=== PATIENT | female | born 1945 | race Caucasian/White ===

== ENCOUNTER 2022-12-29 16:43 | Outpatient (OUT) | payer MEDICARE, SELFPAY ==
--- NOTE | 2022-12-29 17:07 | XR_ITS ---
The [address] [address] Patient Name: OLGA SUNG MRN: [id number] date: 1945 Sex: F Assigned Patient Location: LAB Current Patient Location: LAB Accession/Order Number: [id number] Exam Date: 12/29/2022 17:02 Report Date: 12/29/2022 19:25 At the request of: ANTHONY TRAN Procedure: XR chest 2V EXAM: XR chest 2V HISTORY: COPD,J44.9 ; breathing getting worse. COMPARISON: PA chest/left RIBS series dated 09/30/2021 and PA and lateral views of the chest dated 04/02/2021. TECHNIQUE: PA and lateral views of the chest performed. FINDINGS: Stable mild convexity of the trachea secondary to the aortic arch. The cardiac silhouette is upper limits normal size and stable. Stable moderate atheromatous calcification at the aortic arch and a stable tortuous course of the descending thoracic aorta. There are stable coarsened interstitial markings throughout both lung morris which most likely are related to COPD. There is no new additional consolidation or infiltrate. There is no pleural effusion or pulmonary vascular congestion. There is no pneumothorax. The bony structures are osteopenic. There are stable compression fractures at several levels along the mid thoracic spine with resultant kyphosis. XR/XR chest 2V IMPRESSION: There is no acute cardiopulmonary process. Electronically authenticated by: BEATRIZ CARABALLO Date: 12/29/2022 19:25
== END 2022-12-29 16:44 | disposition home or self-care (01) ==
LOC: LAB 16:50
PROVIDERS: PCP Family Medicine; Visit Provider Family Medicine
DX: J44.9 Chronic obstructive pulmonary disease, unspecified (principal); S06.0XAA Concussion with loss of consciousness status unknown, initial encounter; G62.9 Polyneuropathy, unspecified; M19.90 Unspecified osteoarthritis, unspecified site; F41.9 Anxiety disorder, unspecified; G47.00 Insomnia, unspecified; M65.4 Radial styloid tenosynovitis [de Quervain]; K21.9 Gastro-esophageal reflux disease without esophagitis
CPT/HCPCS: 71046

== ENCOUNTER 2022-12-30 08:48 | Outpatient (OUT) | payer MEDICARE, SELFPAY ==
[2022-12-30 09:33] LABS: Basophils Absolute Auto 0.1 10^3/uL (0.0-0.1); Basophils Percent Auto 0.9 % (0.2-2.0); Eosinophils Absolute Auto 0.3 10^3/uL (0.0-0.7); Hematocrit 38.6 % (36.0-48.0); Hemoglobin 12.5 g/dL (12.0-16.0); Immature Granulocytes Abs Auto 0.02 10^3/uL (0.00-0.03); Immature Granulocytes Pct Auto 0.4 % (0.0-0.5); Lymphocytes Absolute Auto 1.3 10^3/uL (1.2-3.8); Lymphocytes Percent Auto 23.4 % (20.5-60.0); Mean Corpuscular HGB Conc 32.4 g/dL (29.9-35.2); Mean Corpuscular Hemoglobin 30.5 pg (26.7-34.0); Mean Corpuscular Volume 94.1 fL (81.0-99.0); Mean Platelet Volume 10.1 fL (9.5-13.5); Monocytes Absolute Auto 0.6 10^3/uL (0.3-0.8); Monocytes Percent Auto 11.2 % (1.7-12.0); Neutrophils Absolute Auto 3.3 10^3/uL (1.4-6.5); Neutrophils Percent Auto 58.1 % (43.0-75.0); Platelet Count 214 10^3/uL (150-450); Red Cell Distribution Width 12.8 % (11.0-15.0); White Blood Count 5.6 10^3/uL (4.0-11.0)
[2022-12-30 09:55] LABS: Anion Gap 12.8; BUN Creatinine Ratio 26.6; Carbon Dioxide 27.1 mmol/L (21.0-32.0); Chloride 103 mmol/L (98-107); Chol HDL Ratio 2.7; Cholesterol 208 mg/dL (<=200); Estimated GFR (African America >60 (>=60); Estimated GFR (Non-African Ame >60 (>=60); Glucose 86 mg/dL (74-106); HDL Cholesterol 78 mg/dL (40-60); Potassium 3.9 mmol/L (3.5-5.1); Sodium 139 mmol/L (136-145); Thyroid Stimulating Hormone 2.234 uIU/mL (0.358-3.740); Triglycerides 65 mg/dL (<=150)
== END 2022-12-30 08:49 | disposition home or self-care (01) ==
LOC: LAB 08:49
PROVIDERS: PCP Family Medicine; Visit Provider Family Medicine
DX: J44.9 Chronic obstructive pulmonary disease, unspecified (principal); G62.9 Polyneuropathy, unspecified; G47.00 Insomnia, unspecified; K21.9 Gastro-esophageal reflux disease without esophagitis; F41.9 Anxiety disorder, unspecified
CPT/HCPCS: 36415; 80048; 80061; 84436; 84443; 85025

== ENCOUNTER 2023-06-11 12:08 | Outpatient (OUT) | payer MEDICARE, SELFPAY ==
--- NOTE | 2023-06-11 12:18 | XR_ITS ---
The [address] [address] Patient Name: OLGA SUNG MRN: [id number] date: 1945 Sex: F Assigned Patient Location: [facility] Current Patient Location: [facility] Accession/Order Number: [id number] Exam Date: 06/11/2023 12:30 Report Date: 06/13/2023 05:44 At the request of: ANTHONY TRAN Procedure: XR lumbar spine 2-3V EXAMINATION: XR lumbar spine 2-3V, XR thoracic spine 3V HISTORY: strain of other specified muscles, fascia and tendons thigh ; acute thoracic and lumbar pain after picking up object COMPARISON: XR chest 12/29/2022, CT L-spine 11/30/2021 FINDINGS: BONES: Marked anterior wedging T6 and T7 vertebral bodies. Mild compression fractures of T9 and T10. Grade 1 anterior listhesis of L4 on 5. Moderate degenerative facet arthropathy L4-L5, L5-S1. DISC SPACES: Multilevel mild narrowing of thoracic spine. Mild-moderate narrowing throughout lumbar spine except L5-S1 where there is marked narrowing. PARASPINOUS: Atherosclerotic disease of aorta without appreciable aneurysm. OTHER: Negative. XR/XR lumbar spine 2-3V IMPRESSION: 1. Multilevel compression fractures and degenerative disc disease of thoracic and lumbar spine; grossly stable compared to prior studies. 2. No appreciable acute abnormality. Electronically authenticated by: STEPHIE GUADALUPE Date: 06/13/2023 05:44
--- NOTE | 2023-06-11 12:19 | XR_ITS ---
The [address] [address] Patient Name: OLGA SUNG MRN: [id number] date: 1945 Sex: F Assigned Patient Location: [facility] Current Patient Location: [facility] Accession/Order Number: [id number] Exam Date: 06/11/2023 12:30 Report Date: 06/13/2023 05:44 At the request of: ANTHONY TRAN Procedure: XR thoracic spine 3V EXAMINATION: XR lumbar spine 2-3V, XR thoracic spine 3V HISTORY: strain of other specified muscles, fascia and tendons thigh ; acute thoracic and lumbar pain after picking up object COMPARISON: XR chest 12/29/2022, CT L-spine 11/30/2021 FINDINGS: BONES: Marked anterior wedging T6 and T7 vertebral bodies. Mild compression fractures of T9 and T10. Grade 1 anterior listhesis of L4 on 5. Moderate degenerative facet arthropathy L4-L5, L5-S1. DISC SPACES: Multilevel mild narrowing of thoracic spine. Mild-moderate narrowing throughout lumbar spine except L5-S1 where there is marked narrowing. PARASPINOUS: Atherosclerotic disease of aorta without appreciable aneurysm. OTHER: Negative. XR/XR thoracic spine 3V IMPRESSION: 1. Multilevel compression fractures and degenerative disc disease of thoracic and lumbar spine; grossly stable compared to prior studies. 2. No appreciable acute abnormality. Electronically authenticated by: STEPHIE GUADALUPE Date: 06/13/2023 05:44
== END 2023-06-11 12:09 | disposition home or self-care (01) ==
LOC: RAD 12:11
PROVIDERS: PCP Family Medicine; Visit Provider Family Medicine
DX: S76.819A Strain of other specified muscles, fascia and tendons at thigh level, unspecified thigh, initial encounter (principal)
CPT/HCPCS: 72072; 72100

== ENCOUNTER 2023-08-18 08:56 | Outpatient (OUT) | payer MEDICARE, SELFPAY ==
[2023-08-18 09:22] LABS: Basophils Absolute Auto 0.1 10^3/uL (0.0-0.1); Basophils Percent Auto 0.7 % (0.2-2.0); Eosinophils Absolute Auto 0.3 10^3/uL (0.0-0.7); Eosinophils Percent Auto 3.9 % (0.9-7.0); Hematocrit 38.3 % (36.0-48.0); Hemoglobin 12.1 g/dL (12.0-16.0); Immature Granulocytes Abs Auto 0.03 10^3/uL (0.00-0.03); Immature Granulocytes Pct Auto 0.4 % (0.0-0.5); Lymphocytes Absolute Auto 1.1 10^3/uL (1.2-3.8); Lymphocytes Percent Auto 16.2 % (20.5-60.0); Mean Corpuscular HGB Conc 31.6 g/dL (29.9-35.2); Mean Corpuscular Hemoglobin 29.4 pg (26.7-34.0); Mean Corpuscular Volume 93.2 fL (81.0-99.0); Mean Platelet Volume 9.7 fL (9.5-13.5); Monocytes Absolute Auto 0.7 10^3/uL (0.3-0.8); Monocytes Percent Auto 9.4 % (1.7-12.0); Neutrophils Absolute Auto 4.8 10^3/uL (1.4-6.5); Neutrophils Percent Auto 69.4 % (43.0-75.0); Platelet Count 217 10^3/uL (150-450); Red Blood Count 4.11 10^6/uL (4.20-5.40); Red Cell Distribution Width 13.2 % (11.0-15.0); White Blood Count 6.9 10^3/uL (4.0-11.0)
[2023-08-18 09:44] LABS: Alanine Aminotransferase 12 U/L (14-59); Albumin Globulin Ratio 0.8; Albumin Level 3.2 g/dL (3.4-5.0); Alkaline Phosphatase 107 U/L (46-116); Anion Gap 11.5; Aspartate Amino Transferase 15 U/L (15-37); BUN Creatinine Ratio 24.3; Bilirubin Total 0.5 mg/dL (0.2-1.0); Calcium 9.2 mg/dL (8.5-10.1); Carbon Dioxide 29.4 mmol/L (21.0-32.0); Chloride 105 mmol/L (98-107); Chol HDL Ratio 2.6; Cholesterol 215 mg/dL (<=200); Estimated GFR (African America >60 (>=60); Estimated GFR (Non-African Ame >60 (>=60); Globulin 3.8 g/dL; Glucose 89 mg/dL (74-106); HDL Cholesterol 82 mg/dL (40-60); Potassium 3.9 mmol/L (3.5-5.1); Sodium 142 mmol/L (136-145); Triglycerides 66 mg/dL (<=150); VLDL CHOLESTEROL 13.2 mg/dL
== END 2023-08-18 08:57 | disposition home or self-care (01) ==
LOC: LAB 08:59
PROVIDERS: PCP Family Medicine; Visit Provider Family Medicine
DX: G62.9 Polyneuropathy, unspecified (principal); J44.9 Chronic obstructive pulmonary disease, unspecified; G47.00 Insomnia, unspecified; K21.9 Gastro-esophageal reflux disease without esophagitis
CPT/HCPCS: 36415; 80053; 80061; 82607; 82746; 85025

== ENCOUNTER 2023-11-23 09:40 | Outpatient (OUT) | payer MEDICARE, SELFPAY ==
--- NOTE | 2023-11-23 09:56 | XR_ITS ---
The [address] [address] Patient Name: OLGA SUNG MRN: [id number] date: 1945 Sex: F Assigned Patient Location: [facility] Current Patient Location: Accession/Order Number: [id number] Exam Date: 11/23/2023 10:10 Report Date: 11/24/2023 16:22 At the request of: ANTHONY TRAN Procedure: XR DEXA axial skeleton EXAMINATION: XR DEXA axial skeleton, 11/23/2023 10:10 AM EDT HISTORY: Osteoporosis M81.0 COMPARISON: None. TECHNIQUE: Dual-energy X-ray absorptiometry (DEXA) bone density study performed for the axial skeleton. FINDINGS: Bone mineral density AP spine L1-L4 measures 0.992 g/sq cm. T score -1.6. Diverticular classification: Osteopenia Lowest bone mineral density is in the right femoral neck measuring 0.546 g/sq cm. T score -3.5. Osteoporosis XR/XR DEXA axial skeleton IMPRESSION: Osteoporosis. High fracture risk Pharmacologic treatment recommendations * No uniform recommendation applies to all patients. Management plans must be individualized. * Consider initiating pharmacologic treatment in postmenopausal women and men >= 50 years of age who have the following: Primary fracture prevention: * T-score <= - 2.5 at the femoral neck, total hip, lumbar spine, 33% radius (some uncertainty with existing data) by DXA. * Low bone mass (osteopenia: T-score between - 1.0 and - 2.5) at the femoral neck or total hip by DXA with a 10-year hip fracture risk >= 3% or a 10-year major osteoporosis-related fracture risk >= 20% (i.e., clinical vertebral, hip, forearm, or proximal humerus) based on the [place]-adapted FRAXregistered model. Secondary fracture prevention: * Fracture of the hip or vertebra regardless of BMD [4, 5]. * Fracture of proximal humerus, pelvis, or distal forearm in persons with low bone mass (osteopenia: T-score between - 1.0 and - 2.5). The decision to treat should be individualized in persons with a fracture of the proximal humerus, pelvis, or distal forearm who do not have osteopenia or low BMD [12, 13]. Jessica Espitia MS SL, Kj KL, Jessi EM, Matt KG, AJ, Hayde ES. The clinician's guide to prevention and treatment of osteoporosis. Osteoporos Int. 2021;33(10):6906-6097. doi: 10.1007/r73420-579-89274-p. Epub 2021Aug 01. Erratum in: Osteoporos Int. 2021Oct 31;: PMID: [id number]; PMCID: [id number]. Electronically authenticated by: DEAN CORTES Date: 11/24/2023 16:22
--- OUTSIDE RECORDS SUMMARY | 2023-11-23 09:59 | XMS_ITS | CCD ---
Author Organization [facility] Inform ion Partnership [facility] Care Team Providers Care Day Care Home Provider Name Role Phone Se Tran Primary Care Provider [phone] Peter Milian Unavailable PAY, DR RAI Admitting Unavailable HOUSE, DR CRUZ Primary Care Unavailable PAY, DR RAI Attending Unavailable PAY, DR RAI Consulting Unavailable ROYCE, DEAN Staley Unavailable ANGELLA, DR SENIA Hassan Admitting Unavailabl e MARC, DR CRUZ Primary Care Unavailable ANGELLA, DR SENIA Hassan Attending Unavailabl e GISSEL, DR GRUPO Duarte Consulting Unavailable CAT, TERESO Consulting Unavailable ROYCE, DEAN Consulting Unavailable BORGER, DR CRUZ Admitting Unavailable BORGER, DR CRUZ Attending Unavailable BORGER, DR CRUZ Consulting Unavailable BORGER, DR CRUZ Primary Care Unavailable BORGER, DR CRUZ Admitting Unavailable BORGER, DR CRUZ Attending Unavailable BORGER, DR CRUZ Consulting Unavailable BORGER, DR CRUZ Primary Care Unavailable [facility], DR Virgen Consulting Unavailable BORGER, DR CRUZ Attending Unavailable BORGER, DR CRUZ Admitting Unavailable FIFTY SIX, DR DEAN Duff Consulting Unavailable BORGER, DR CRUZ Primary Care Unavailable BORGER, DR CRUZ Consulting Unavailable Andressa Thibodeaux Unavailable DO Jose Angel Perez Jr Attending Provider Doreen Zarate Unavailable NON STAFF Primary Care Provider UnavailJETHRO Duncan Other Provider Unavailable JETHRO Hernandez Other Provider Unavailable JETHRO Thompson Other Provider Unavailable JETHRO Marcelino Other Provider Unavailable JETHRO Campos Other Provider Unavailable JETHRO Meza Other Provider Unavailable JETHRO Donato Other Provider Unavailable MD Antonio May Other Provider MD Jose Alfredo Joaquin Other Provider Unavailable Dials, GEAR DESIGN ENGINEER Snow Weeks Other Provider DO Nathalia Calvo Other Provider MD Chris Sanders Other Provider DO Guero Blanco Other Provider MD Rangel Nobles Other Provider MD Lynn Cheng Other Provider MD Raulito Nelson Other Provider Unavailable SERGEY Boogie Other Provider MD Elaine Luque Other Provider [phone] MD Sumanth Jimenez Other Provider MD Natan Mendieta Other Provider MD Carri Bill Other Provider DO Pasquale Mckeon Other Provider MD Major Castaneda Other Provider MD Vincent Holman Other Provider DAVID Ellsworth-C Tasha Tamayo Other Provider SERGEY Rodriguez Other Provider Unavailable MD Joel Peter Other Provider MD Conner Monsivais Other Provider MD Torsten Ramachandran Other Provider MD Svetlana Hassan Other Provider Unavailable MD Austin Duval Other Provider DO Cyndee Whyte Other Provider DO Caryn Sin R Other Provider DO Abdirizak Mayorga Other Provider SERGEY Guadarrama Other Provider DO Shlomo Amin Other Provider MD [place] M Other Provider SERGEY Pinon Other Provider SERGEY Peralta Other Provider MD Erica Zelaya Other Provider MD Ryan Badillo Other Provider SERGEY Hutchinson Other Provider DO Campos Erwin Other Provider JETHRO Kerr Other Provider Unavailable Se Tran MD Primary Care Provider Stepanic Jr, Jose Angel Admitting Unavailable Stepanic Jr, Jose Angel Attending Unavailable Stepanic Jr, Jose Angel Admitting Unavailable NON STAFF Primary Care Unavailable Stepanic Jr, Jose Angel Attending Unavailable NON STAFF Primary Care Unavailable Stepanic Jr, Jose Angel Admitting Unavailable Lesa Ruvalcaba Consulting Unavailable Stepanic Jr, Jose Angel Attending Unavailable Irlanda Hernandez Consulting Unavailable Ely Thompson Consulting Unavailable Erin Marcelino Consulting Unavailable Latesha Campos Consulting Unavailable Radhika Meza Consulting Unavailable Malena Donato Consulting Unavailable Antonio May Consulting Unavailable JemalJose Alfredo K Consulting Unavailable Snow Platt Consulting Unavailable Nathalia Calvo Consulting Unavailable Chris Sanders Consulting Unavailable Guero Blanco Consulting UnavailRangel Saenz Consulting Unavailable Lynn Cheng Consulting Unavailable Raulito Nelson Consulting Unavailable Rosa Maria Boogie Consulting UnavailElaine Hopkins Consulting Unavailable Sumanth Jimenez Consulting Unavailable Natan Mendieta Consulting Unavailable Carri Bill Consulting Unavailable Pasquale Mckeon Consulting Unavailable Major Castaneda Consulting Unavailable Vincent Holman Consulting Unavailable Tasha Ellsworth Consulting Unavailable Juan Rodriguez Consulting Unavailable Joel Peter Consulting UnavailConner Lopez Consulting Unavailable Torsten Ramachandran Consulting Unavailable Svetlana Hassan Consulting Unavailable Austin Duval Consulting Unavailable Cyndee Whyte Consulting Unavailable Sin Rubin Consulting Unavailable Abdirizak Mayorga Consulting Unavailable Yuki Guadarrama Consulting Unavailable Shlomo Amin Consulting Unavailable [place] Consulting Unavailable Megan Pinon Consulting Unavailable Steffanie Peralta Consulting Unavailable Alanettie, Alacari Consulting Unavailable Aby, Ryan Tamayo Consulting Unavailable nAa Hutchinson Consulting Unavailable Rip, Campos Consulting Unavailable Michelle Kerr Consulting Unavailable STEPANIC, JR., JOSE ANGEL Reyes Attending Unavaila ble STEPANIC, JR., JOSE ANGEL Reyes Referring Unavaila ble JOVI MENDIOLA Attending Unavailable MARGARET ECHEVERRIA Attending Unavailable STEPANIC, JR., JOSE ANGEL Reyes Referring Unavaila ble ONESIMO BRYAN Attending Unavailable ARMANDO GARCIA Attending Unavailable STEPANIC, JR., JOSE ANGEL Reyes Referring Unavaila ble SOL WASHINGTON Attending Unavailable STEPANIC, JR., JOSE ANGEL Reyes Referring Unavaila ble SANDIEY, ARMANDO Attending Unavailable STEPANIC, JR., JOSE ANGEL Reyes Referring Unavaila ble SANDIEY, ARMANDO Attending Unavailable STEPANIC, JR., JOSE ANGEL Reyes Referring Unavaila ble SANDIEY, ARMANDO Attending Unavailable STEPANIC, JR., JOSE ANGEL Reyes Referring Unavaila ble JOSE, ARMANDO Attending Unavailable STEPANIC, JR., JOSE ANGEL Reyes Referring Unavaila ble MARYAM TREJO Attending Unavailable ONESIMO BRYAN Attending Unavailable ONESIMO BRYAN Referring Unavailable MALENA PLUNKETT Attending Unavailable STEPANIC, JR., JOSE ANGEL Reyes Referring Unavaila ble MARYAM TREJO Attending Unavailable MARYAM TREJO Referring Unavailable ONESIMO BRYAN Attending Unavailable ONESIMO BRYAN Attending Unavailable HOUSE, DO SE Langford Attending Unavailable HOUSE, SE P Primary Care Unavailable HOUSE, DO SE Langford Attending Unavailable HOUSE, SE Langford Primary Care Unavailable HOUSE, DO SE [place]ford Attending Unavailable HOUSE, SE P Primary Care Unavailable HOUSE, DO SE [place]ford Attending Unavailable HOUSE, SE P Primary Care Unavailable HOUSE, SE P Primary Care Unavailable Ryan Ritchie MD Attending Unavailable HOUSE, SE [place] Primary Care Unavailable Ryan Ritchie MD Attending Unavailable HOUSE, DO SE Langford Attending Unavailable HOUSE, SE Langford Primary Care Unavailable Medications Current Medications Medication Drug Class(es) Dates Sig (Normalized) Sig (Original) acetaminophen 325 mg / oxyCODONE hydrochloride 5 mg oral tablet (8 sources) Opioid Agonist take 1 tablet by mouth every six hours Percocet 5-325 MG 1 tablet as needed Orally every 6 hrs Active [id number] 200 actuat albuterol 0.09 mg/actuat metered dose inhaler (20 sources) beta2-Adrenergic Agonist Start: 04-27-2023 take 1 puff(s) by inhalation every six hours Albuterol Sulfate Active 2 PUFF INHALATION Q6H April 27, 2023 12:00am Start: 03-05-2023 take 2 puff(s) by in halation every six hours albuterol HFA 90 mcg/act inhaler Inhale 2 puffs every 6 (six) hours if needed 0 03/05/2023 Active take 2 puff(s) by in halation every six hours as needed Ventolin HFA 108 (90 Base) MCG/ACT 2 puffs as needed Inhalation every 6 hrs for 30 days Active aspirin 81 mg delayed release oral tablet (1 source) Platelet Aggregation Inhibitor, Nonsteroidal Anti-inflammatory Drug Start: 05-13-2023 take 81 mg by mouth twice daily Aspirin Active 81 MG PO Twice daily 60 May 13, 2023 12:00am biotin 10 mg oral tablet (11 sources) Start: 04-27-2023 take 10 mg by mouth once daily Biotin Active 10 MG PO Daily April 27, 2023 12:00am take 1 tablet by varun th every twenty-four hours Biotin 1000 MCG 1 tablet Orally Once a day Active take 1 tablet by varun th every twenty-four hours Biotin 1000 MCG 1 tablet Orally Once a day Active Breo Ellipta 200-25 MCG/INH (1 source) Start: 04-09-2020 take 1 puff(s) by inhalation once daily Breo Ellipta 200-25 MCG/INH 1 puff Inhalation Once a day for 30 day(s) Apr, Active calcium carbonate 1500 mg / cholecalciferol 200 unt oral tablet (3 sources) Vitamin D Start: 04-27-2023 take 1 tablet by mouth once daily Calcium Carbonate-Vitamin D3 (Calcium 600 + D(3)) 600 mg-5 mcg (200 unit) tablet Active 1 TAB PO Daily April 27, 2023 12:00am cholecalciferol 0.025 mg oral tablet (3 sources) Vitamin D Start: 04-27-2023 take 1 tablet by mouth once daily Cholecalciferol (Vitamin D3) (Vitamin D3) 25 mcg (1,000 unit) tablet Active 1000 UNIT PO Daily April 27, 2023 12:00am cyclobenzaprine hydrochloride 10 mg oral tablet (20 sources) Muscle Relaxant take 1 tablet by mouth in the morning cyclobenzaprine (Flexeril) 10 MG tablet Take 10 mg by mouth in the morning and 10 mg before bedtime. 0 Active Diclofenac (8 sources) Nonsteroidal Anti-inflammatory Drug Start: 06-17-2017 Voltaren 1 % as directed Transdermal 1-2gm to affected area BID Jun, Active Start: 06-17-2017 Voltaren 1 % a s directed Transdermal 1-2gm to affected area BID Jun, Active DISABILITY PLACARD (3 sources) Start: 01-03-2019 End: 01-03-2022 DISABILITY PLACARD Indications: Closed compression fracture of thoracic vertebra, initial encounter , Closed compression fracture of fourth lumbar vertebra, initial encounter Disability placard end date 01/03/2022 1 Each 0 01/03/2019 01/03/2022 Active 30 actuat fluticasone furoate 0.1 mg/actuat / vilanterol 0.025 mg/actuat dry powder inhaler (20 sources) Corticosteroid, beta2-Adrenergic Agonist Start: 04-27-2023 Fluticasone Furoate-Vilanterol (Breo Ellipta) 100-25 mcg/dose blister with device Active 1 INH INHALATION Daily April 27, 2023 12:00am Start: 03-15-2023 take 1 puff(s) by in halation in the morning Breo Ellipta 100-25 MCG/ACT aerosol powder Inhale 1 puff in the morning. 0 03/15/2023 Active Start: 04-09-2020 take 1 puff(s) by in halation once daily Breo Ellipta 200-25 MCG/ACT 1 puff Inhalation Once a day for 30 days Apr, Active Start: 12-25-2018 take 1 puff(s) by mouth once d aily BREO ELLIPTA 200-25 MCG/INH Aerosol Powder, breath activated Take 1 puff by mouth daily. 5 12/25/2018 Active folic acid 1 mg / polysaccharide iron complex 150 mg / vitamin b12 0.025 mg oral capsule (9 sources) Vitamin B12 Start: 04-27-2023 take 1 capsule by mouth once daily Iron Ps Djwduur-H12-Mmrbc Acid (Poly-Iron 150 Forte) 150-25-1 mg-mcg-mg capsule Active 1 CAP PO Daily April 27, 2023 12:00am Start: 04-15-2023 End: 05-15-2023 take 1 tablet by mouth in the morning Iron Polysacch Iotfw-U33-NJ (Poly-Iron 150 Forte) 150-0.025-1 MG capsule Indications: Pre-op examination , Arthritis of left knee Take 1 tablet by mouth in the morning. 30 capsule 1 04/15/2023 05/15/2023 ibuprofen 600 mg oral tablet (8 sources) Nonsteroidal Anti-inflammatory Drug Start: 12-28-2018 take 1 tablet by mouth three times daily at mealtime as needed Ibuprofen 600 MG 1 tablet with food or milk as needed Orally Three times a day Dec, Active Multi Vitamin Daily (8 sources) take 1 tablet by mouth once daily Multi Vitamin Daily 1 tablet Orally Once a day Active Multivitamin (Daily Multi-Vitamin) tablet (3 sources) Start: 04-27-2023 take 1 tablet by mouth once daily Multivitamin (Daily Multi-Vitamin) tablet Active 1 TAB PO Daily April 27, 2023 12:00am ondansetron 4 mg oral tablet (6 sources) Serotonin-3 Receptor Antagonist Start: 05-16-2023 End: 05-23-2023 ondansetron (Zofran) 4 MG tablet Indications: Postoperative nausea 1 tab every 6h prn nausea 12 tablet 1 05/16/2023 05/23/2023 Active 28 actuat tiotropium 0.0025 mg/actuat inhalation spray (2 sources) Anticholinergic Start: 09-18-2021 take 2 puff(s) by inhalation once daily Spiriva Respimat 2.5 MCG/ACT 2 puffs Inhalation Once a day for 30 days Sep, Active Umeclidinium (20 sources) Anticholinergic Start: 05-14-2023 Umeclidinium (Umeclidinium 62.5 Mcg/Actuation Blister Powder For Inhalation) 62.5 mcg/actuation blister with device Active INHALATION May 14, 2023 12:00am Start: 05-06-2022 take 1 puff(s) by mouth once d aily Incruse Ellipta 62.5 MCG/ACT aerosol powder INHALE 1 PUFF BY MOUTH DAILY 0 03/15/2023 Active Start: 12-10-2018 take 1 puff(s) by mouth once d aily INCRUSE ELLIPTA 62.5 MCG/INH Aerosol Powder, breath activated inhalation powder 1 puff by Mouth/Throat route daily. 5 12/10/2018 Active Start: 04-07-2017 take 1 puff(s) by in halation once daily Incruse Ellipta 62.5 MCG/INH 1 puff Inhalation Once a day for 30 day(s) Apr, Active Vitamin B Complex (B Complex-Vitamin B12) tablet (3 sources) Start: 04-27-2023 take 1 tablet by mouth once daily Vitamin B Complex (B Complex-Vitamin B12) tablet Active 1 TAB PO Daily April 27, 2023 12:00am Completed/Discontinued Medications Medication Drug Class(es) Dates Sig (Normalized) Sig (Original) cephalexin 500 mg oral capsule (18 sources) Cephalosporin Antibacterial Start: 04-27-2023 End: 05-14-2023 take 500 mg by mouth once daily Cephalexin Discontinued 500 MG PO Daily April 27, 2023 12:00am May 14, 2023 10:13am Start: 04-08-2023 take 1 capsule by mo [facility] three times daily cephalexin (Keflex) 500 MG capsule TAKE 1 CAPSULE BY MOUTH THREE TIMES DAILY FOR 7 DAYS 0 04/08/2023 Active hyaluronate (20 sources) Start: 11-24-2017 Supartz Nov Start: 11-17-2017 Supartz Nov Start: 11-09-2017 Supartz Nov Start: 11-02-2017 Supartz Oct Start: 10-26-2017 Supartz Oct Start: 04-14-2017 Supartz Apr Start: 03-23-2017 Supartz Mar Start: 03-09-2017 Supartz Mar Start: 02-23-2017 Supartz Feb Start: 02-16-2017 Supartz Feb Start: 02-09-2017 Supartz Feb oxyCODONE 18 mg 12 hr extended release oral capsule, abuse-deterrent (15 sources) Opioid Agonist Start: 04-27-2023 End: 05-13-2023 take 1 capsule by mouth every twelve hours Oxycodone Myristate (Xtampza Er) 18 mg cap,sprinkl,ER12hr(DONT CRUSH) Discontinued 18 MG PO Q12H April 27, 2023 12:00am May 13, 2023 12:14pm Triamcinolone (20 sources) Corticosteroid Start: 05-05-2019 Kenalog -40 mg Apr, 40 mg Start: 12-28-2018 Kenalog -40 mg Dec, 40 mg Start: 09-27-2018 Kenalog -40 mg Sep, 40 mg Start: 02-08-2018 Kenalog -40 mg Feb, 40 mg Start: 11-20-2016 Kenalog -40 mg Nov, 40 mg Problems Active Problems Problem Classification Problem Date Documented Date Episodic/Chronic Chronic obstructive pulmonary disease and bronchiectasis (19 sources) Chronic obstructive lung disease; Translations: [Chronic obstructive pulmonary disease, unspecified] Onset: 09-17-2021 Resolved: 09-18-2021 Chronic Esophageal disorders (3 sources) Gastroesophageal reflux disease; Translations: [Gastro-esophageal reflux disease without esophagitis] Onset: 05-14-2023 05-14-2023 Chronic Essential hypertension (1 source) Essential (primary) hypertension; Translations: [ESSENTIAL PRIMARY HYPERTENSION] Onset: 12-02-2021 Chronic Menopausal disorders (12 sources) Disorder associated with menstruation AND/OR menopause; Translations: [Menopausal and female climacteric states] Onset: 04-15-2023 04-15-2023 Chronic Nausea and vomiting (1 source) Postoperative nausea; Translations: [Nausea] 05-16-2023 Episodic Occlusion or stenosis of precerebral arteries (4 sources) Occlusion and stenosis of unspecified carotid artery; Translations: [Occlusion and stenosis of bilateral carotid arteries] Onset: 04-17-2022 Chronic Osteoarthritis (20 sources) Inflammation of joint of both hands; Translations: [Primary osteoarthritis, right hand] Onset: 04-15-2023 05-14-2023 Chronic Osteoporosis (12 sources) Postmenopausal osteoporosis; Translations: [Age-related osteoporosis without current pathological fracture] Onset: 04-15-2023 04-15-2023 Chronic Other acquired deformities (4 sources) Lumbar spondylolisthesis; Translations: [Spondylolisthesis of lumbar region] Onset: 07-31-2016 01-03-2019 Other bone disease and musculoskeletal deformities (1 source) Disorder of bone; Translations: [Disorder of bone] Episodic Other circulatory disease (4 sources) Raynaud's disease; Translations: [Raynaud's syndrome without gangrene] Chronic Other connective tissue disease (9 sources) History of total knee arthroplasty; Translations: [Presence of left artificial knee joint] Onset: 05-17-2023 05-17-2023 Chronic Other fractures (4 sources) Closed fracture thoracic vertebra, wedge; Translations: [Wedge compression fracture of T7-T8 vertebra, initial encounter for closed fracture] Episodic Other fractures (12 sources) Fracture of seventh thoracic vertebra; Translations: [Wedge compression fracture of T7-T8 vertebra, initial encounter for closed fracture] Onset: 04-15-2023 04-15-2023 Episodic Other nervous system disorders (1 source) Polyneuropathy, unspecified; Translations: [POLYNEUROPATHY UNSPECIFIED] Onset: 09-20-2021 Chronic Other nervous system disorders (1 source) Postoperative pain ; Translations: [Other acute postprocedural pain] 05-12-2023 Episodic Other non-traumatic joint disorders (9 sources) Pain in left knee; Translations: [Pain in joint, lower leg] Onset: 05-17-2023 05-17-2023 Episodic Skin and subcutaneous tissue infections (1 source) Cellulitis of right toe Episodic Unclassified (2 sources) LOW BACK PAIN, UNSPECIFIED; Translations: [LOW BACK PAIN, UNSPECIFIED] Onset: 12-02-2021 Unclassified (1 source) Unilateral primary osteoarthritis, left knee; Translations: [Unilateral primary osteoarthritis, left knee] Onset: 05-06-2023 Unclassified (1 source) Encounter for preprocedural cardiovascular examination; Translations: [Encounter for preprocedural cardiovascular examination] Onset: 04-27-2023 Past or Other Problems Problem Classification Problem Date Documented Da te Episodic/Chronic E Codes: Fall (1 source) Fall on same level from slipping, tripping and stumbling with subsequent striking against unspecified object, initial encounter; Translations: [FALL SAME LVL SLIP STRK UNS OBJ INT] Onset: 12-02-2021 Episodic E Codes: Natural/environment (1 source) Exposure to other specified factors, initial encounter; Translations: [EXPOSURE OTHER SPEC FACTORS INITIAL] Onset: 10-02-2021 Episodic E Codes: Unspecified (1 source) Activity, golf; Translations: [ACTIVITY GOLF] Onset: 10-02-2021 Episodic Nonspecific chest pain (5 sources) Other chest pain; Translations: [Chest pain, unspecified] Onset: 05-21-2021 Episodic Other acquired deformities (15 sources) Degenerative spondylolisthesis; Translations: [Spondylolisthesis, site unspecified] Onset: 06-19-2016 01-03-2019 Episodic Other acquired deformities (12 sources) Lumbar spondylolisthesis; Translations: [Spondylolisthesis, lumbar region] Onset: 07-31-2016 04-15-2023 Episodic Other aftercare (1 source) Other snf (current) drug therapy; Translations: [OTH FORMING TUBE SELECTOR CURRENT DRUG THERAPY] Onset: 12-02-2021 Episodic Other bone disease and musculoskeletal deformities (1 source) Chondrocostal junction syndrome [Tietze]; Translations: [CHONDROCOSTAL JUNCTION SYND TIETZE] Onset: 10-02-2021 Episodic Other fractures (2 sources) Compression fracture of thoracic spine; Translations: [Closed compression fracture of thoracic vertebra, initial encounter] Episodic Other fractures (2 sources) Compression fracture of lumbar spine; Translations: [Closed compression fracture of fourth lumbar vertebra, initial encounter] Episodic Other injuries and conditions due to external causes (1 source) Unspecified injury of thorax, initial encounter; Translations: [UNSPECIFIED INJURY THORAX INITIAL] Onset: 10-02-2021 Episodic Other lower respiratory disease (3 sources) Pleurodynia; Translations: [PLEURODYNIA] Onset: 09-30-2021 Episodic Other lower respiratory disease (1 source) Other forms of dyspnea; Translations: [OTHER FORMS OF DYSPNEA] Onset: 05-23-2021 Episodic Rheumatoid arthritis and related disease (15 sources) Retrolisthesis; Translations: [Spondylolisthesis, site unspecified] Onset: 06-19-2016 01-03-2019 Episodic Screening and history of mental health and substance abuse codes (15 sources) Ex-smoker; Translations: [Personal history of nicotine dependence] Onset: 06-19-2016 01-03-2019 Episodic Spondylosis; intervertebral disc disorders; other back problems (16 sources) Spinal stenosis of lumbar region; Translations: [Spinal stenosis, lumbar region with neurogenic claudication] Onset: 06-19-2016 01-03-2019 Episodic Sprains and strains (1 source) Strain of muscle, fascia and tendon at neck level, initial encounter; Translations: [STRN MUSC FASC TENDON NECK LEVL INT] Onset: 12-02-2021 Episodic Superficial injury; contusion (2 sources) Contusion of lower back and pelvis, initial encounter; Translations: [Contusion of unspecified part of head, initial encounter] Onset: 12-02-2021 Episodic Unclassified (1 source) LOW BACK PAIN, UNSPECIFIED; Translations: [LOW BACK PAIN, UNSPECIFIED] Onset: 11-30-2021 Results Test Name Value Interpretation Reference Range Facility Lab - Other Lab [facility] - Other Lab Results [id number]#1.00[facility] Consultation/Specialist Note on 07-28-2023 Consultation/Specialist Note [id number]#1.00[facility] Consultation/Specialist Note on 07-23-2023 Consultation/Specialist Note [id number]#1.00[facility] Outside Recordson 06-29-2023 Outside Records [id number]#1.00[facility] Outside Records [id number]#1.00[facility] Rad - Other Radiology Report on 06-16-2023 Rad - Other Radiology Report [id number]#1.00[facility] Miscellaneouson 06-04-2023 Miscellaneous [id number]#1.00[facility] Outside Recordson 05-29-2023 Outside Records [id number]#1.00[facility] Basic Metabolic Panelon Anion gap [Moles/Vol] 8.1 mmol/L Normal 6.0-15.0 [facility] Comment on above: Performed By: #### C , BMP ####[facility] [id number] [place] [id number] [facility] Calcium [Mass/Vol] 8.5 mg/dL Low 8.6-10.3 [facility] Comment on above: Performed By: #### C BC, BMP ####[place] [id number] [place] [id number] [facility] Chloride [Moles/Vol] 104 mmol/L Normal 98-107 [facility] Comment on above: Performed By: #### C BC, BMP ####[place] [address] [place] [id number] [facility] CO2 [Moles/Vol] 29.3 mmol/L Normal 21.0-31.0 [facility] Comment on above: Performed By: #### C BC, BMP ####[place] [address] Creatinine [Mass/Vol] 0.64 mg/dL Normal 0.60-1.20 [facility] Comment on above: Performed By: #### C BC, BMP ####[address] Creatinine Clr Calc Pharmacy 49.94 [facility] Comment on above: Result Comment: PERF ORMED BY: [facility] [address] [place] [address] PATHOLOGIST LEAD PROJECT MANAGER VIRAL BANKS M.D. Performed By: #### C BC, BMP ####[place] [address] [place] [id number] [facility] GFR/1.73 sq M.predicted MDRD (S/P/Bld) [Vol rate/Area] mL/min/{1.73_m2} [facility] Comment on above: Performed By: #### C BC, BMP ####[place] [address] [place] [id number] [facility] Glucose [Mass/Vol] 116 mg/dL High 70-100 [facility] Comment on above: Result Comment: [place] Glucose Reference Range is dependent on time and content of last meal. Glucose of more than 200 mg/dL in a nonstressed, ambulatory subject supports the diagnosis of Diabetes Mellitus. ADA recommended reference range Performed By: #### C BC, BMP ####[facility] [id number] [place] [address] [facility] Potassium [Moles/Vol] 4.4 mmol/L Normal 3.5-5.1 [facility] Comment on above: Performed By: #### C BC, BMP ####[facility] [id number] [place] [address] [facility] Sodium [Moles/Vol] 137 mmol/L Normal 136-145 [facility] Comment on above: Performed By: #### C BC, BMP ####[facility] [id number] [place] [address] [facility] Urea nitrogen [Mass/Vol] 14 mg/dL Normal 7-25 [facility] Comment on above: Performed By: #### C BC, BMP ####[facility] [id number] [place] [address] [facility] Basic metabolic 1998 panelon 05-15-2023 Anion gap [Moles/Vol] 8.1 mmol/L 6.0 - 15.[address] [facility] Calcium [Mass/Vol] 8.5 mg/dL Low 8.6 - 10. 3 mg/dL [facility] Chloride [Moles/Vol] 104 mmol/L 98 - 10 7 mmol/L [facility] CO2 [Moles/Vol] 29.3 mmol/L 21.0 - 31.0 mmol/L [facility] Creatinine (U) [Mass/Vol] 0.64 mg/dL 0.60 - 1.20 mg/dL [facility] CREATININE CLR CALC PHARMACY 49.94 [facility] GFR/1.73 sq M.predicted MDRD (S/P/Bld) [Vol rate/Area] mL/min/{1.73_m2} [facility] Glucose [Mass/Vol] 116 mg/dL High 70 - 100 mg/dL [facility] Comment on above: Random Glucose Refer ence Range is dependent on time and content of last meal. Glucose of more than 200 mg/dL in a nonstressed, ambulatory subject supports the diagnosis of Diabetes Mellitus. ADA recommended reference range Interpretation and review of laboratory results Abnormal [facility] Potassium [Moles/Vol] 4.4 mmol/L 3.5 - 5.1 mmol/L [facility] Sodium [Moles/Vol] 137 mmol/L 136 - 145 mmol/L [facility] Urea nitrogen [Mass/Vol] 14 mg/dL 7 - 25 mg/d L [facility] Basophils Auto (Bld) [#/Vol] Ordered By: Jose Angel Perez on 05-15-2023 Basophils (Bld) [#/Vol] 0.0 10*3/uL 0.0-0.2 [facility] Basophils/100 WBC Auto (Bld) Ordered By: Jose Angel Perez on 05-15-2023 Basophils/100 WBC (Bld) 0.2 % . [facility] CBC W Auto Differential pane l (Bld)on 05-15-2023 Basophils (Bld) [#/Vol] 0.0 10*3/uL 0.0 - 0.2 10*3/uL [facility] Basophils/100 WBC Manual cnt (Syn fld) 0.2 % . [facility] Eosinophils (Bld) [#/Vol] 0.0 10*3/uL 0.0 - 0.45 10*3/uL [facility] Eosinophils/100 WBC Manual cnt (Syn fld) 0.3 % . [facility] Erythrocyte distribution width (RBC) [Ratio] 13.9 % 11.9 - 15.3 % [facility] Hematocrit (Bld) [Volume fraction] 29.9 % Low 34.0 - 46.4 % [facility] Hemoglobin (Bld) [Mass/Vol] 10.2 g/dL Low 11.8 - 15.4 g/dL [facility] Interpretation and review of laboratory results Abnormal [facility] Lymphocytes (Bld) [#/Vol] 1.1 10*3/uL 1.00 - 4.8 10*3/uL [facility] Lymphocytes/100 WBC Manual cnt (Syn fld) 14.2 % . [facility] MCH (RBC) [Entitic mass] 31.1 pg 24. 7 - 34.3 pg [facility] MCHC (RBC) [Mass/Vol] 34.1 g/dL 32.0 - 35.0 g/dL [facility] MCV (RBC) [Entitic vol] 91.1 fL 80 - 100 fL [facility] Monocytes (Bld) [#/Vol] 0.8 10*3/uL 0.0 - 0.8 10*3/uL [facility] Monocytes+Macrophages/10 0 WBC Manual cnt (Syn fld) 10.7 % . [facility] Neutrophils (Bld) [#/Vol] 5.9 10*3/uL 1.8 - 7.7 10*3/uL [facility] Neutrophils/100 WBC Manual cnt (Syn fld) 74.6 % . [facility] NRBC 0.0 /100{WBC} 0 - 0.5 /100{WBC} [facility] Platelet mean volume (Bld) [Entitic vol] 8.2 fL 6.3 - 10.7 fL [facility] Platelets (Bld) [#/Vol] 174 10*3/uL 150 - 450 10*3/uL [facility] RBC LM.HPF (Urine sed) [#/Area] 3.28 /[HPF] Low 3.60 - 5.00 [facility] WBC (Bld) [#/Vol] 7.9 10*3/uL 3.8 - 11.6 10*3/uL [facility] WBC LM.HPF (Urine sed) [#/Area] 7.9 10*3/uL 3.8 - 11.6 10*3/uL [facility] Calcium [Mass/volume] in Ser um or PlasmaOrdered By: Jose Angel Perez on 05-15-2023 Calcium [Mass/Vol] 8.5 mg/dL 8.6-10.3 [facility] Carbon dioxide, total [Moles /volume] in Serum or PlasmaOrdered By: Jose Angel Perez on 05-15-2023 CO2 [Moles/Vol] 29.3 mmol/L 21.0-31.0 [facility] Chloride [Moles/volume] in S erin or PlasmaOrdered By: Jose Angel Perez on 05-15-2023 Chloride [Moles/Vol] 104 mmol/L 98-107 [facility] Complete Blood Count Auto Di ffon 05-15-2023 Basophils (Bld) [#/Vol] 0.0 10*3/uL Normal 0.0-0.2 [facility] Comment on above: Result Comment: PERF ORMED BY: [facility] [address] [place] [address] PATHOLOGIST [employer]NA[employer] VIRAL BANKS M.D. Performed By: #### C BC, BMP ####[address] [place] [address] [place] Basophils/100 WBC (Bld) 0.2 % Normal . [facility] Comment on above: Performed By: #### C BC, BMP ####[address] [address] [facility] Eosinophils (Bld) [#/Vol] 0.0 10*3/uL Normal 0.0-0.45 [facility] Comment on above: Performed By: #### C BC, BMP ####[address] [address] [facility] Eosinophils/100 WBC (Bld) 0.3 % Normal . [facility] Comment on above: Performed By: #### C BC, BMP ####[address] [address] [facility] Erythrocyte distribution width (RBC) [Ratio] 13.9 % Normal 11.9-15.3 [facility] Comment on above: Performed By: #### C BC, BMP ####[address] [address] [facility] Hematocrit (Bld) [Volume fraction] 29.9 % Low 34.0-46.4 [facility] Comment on above: Performed By: #### C BC, BMP ####[address] [address] [facility] Hemoglobin (Bld) [Mass/Vol] 10.2 g/dL Low 11.8-15.4 [facility] Comment on above: Performed By: #### C BC, BMP ####[address] [address] [facility] Lymphocytes (Bld) [#/Vol] 1.1 10*3/uL Normal 1.00-4.8 [facility] Comment on above: Performed By: #### C BC, BMP ####[address] [address] [facility] Lymphocytes/100 WBC (Bld) 14.2 % Normal . [facility] Comment on above: Performed By: #### C BC, BMP ####[address] [address] [facility] MCH (RBC) [Entitic mass] 31.1 pg Normal 24.7-34.3 [facility] Comment on above: Performed By: #### C BC, BMP ####[address] [address] [facility] MCV (RBC) [Entitic vol] 91.1 fL Normal 80-100 [facility] Comment on above: Performed By: #### C BC, BMP ####[address] [address] [facility] Mean Corpuscular HGB Conc 34.1 g/dL Normal 32.0-35.0 [facility] Comment on above: Performed By: #### C BC, BMP ####[address] [address] [facility] Monocytes (Bld) [#/Vol] 0.8 10*3/uL Normal 0.0-0.8 [facility] Comment on above: Performed By: #### C BC, BMP ####[address] [address] [facility] Monocytes/100 WBC (Bld) 10.7 % Normal . [facility] Comment on above: Performed By: #### C BC, BMP ####[address] [address] [facility] Neutrophils (Bld) [#/Vol] 5.9 10*3/uL Normal 1.8-7.7 [facility] Comment on above: Performed By: #### C BC, BMP ####[address] [address] [facility] Neutrophils/100 WBC (Bld) 74.6 % Normal . [facility] Comment on above: Performed By: #### C BC, BMP ####[address] [address] [facility] NRBC% 0.0 /100{WBC} Normal 0-0.5 [facility] Comment on above: Performed By: #### C BC, BMP ####[facility] [address] [place] [address] [facility] Platelet mean volume (Bld) [Entitic vol] 8.2 fL Normal 6.3-10.7 [facility] Comment on above: Performed By: #### C BC, BMP ####[facility] [id number] [place] [address] [facility] Platelets (Bld) [#/Vol] 174 10*3/uL Normal 150-450 [facility] Comment on above: Performed By: #### C KATH, BMP ####[facility] [place] [address] [facility] RBC (Bld) [#/Vol] 3.28 10*6/uL Low 3.60-5.00 [facility] Comment on above: Performed By: #### C KATH, BMP ####[address] [place] [address] [facility] WBC (Bld) [#/Vol] 7.9 10*3/uL Normal 3.8-11.6 [facility] Comment on above: Performed By: #### C KATH, BMP ####[address] [address] [facility] Creatinine [Mass/volume] in Serum or PlasmaOrdered By: Jose Angel Perez on 05-15-2023 Creatinine [Mass/Vol] 0.64 mg/dL 0.60-1.20 [facility] Eosinophils Auto (Bld) [#/Vo l]Ordered By: Jose Angel Perez on 05-15-2023 Eosinophils (Bld) [#/Vol] 0.0 10*3/uL 0.0-0.45 [facility] Eosinophils/100 WBC Auto (Bl d)Ordered By: Jose Angel Perez on 05-15-2023 Eosinophils/100 WBC (Bld) 0.3 % . [facility] Erythrocyte distribution wid th Auto (RBC) [Ratio]Ordered By: Jose Angel Perez on 05-15-2023 Erythrocyte distribution width (RBC) [Ratio] 13.9 % 11.9-15.3 [facility] Glucose [Mass/volume] in Ser um or PlasmaOrdered By: Jose Angel Perez on 05-15-2023 Glucose [Mass/Vol] 116 mg/dL 70-100 [facility] Comment on above: ADA recommended refe rence rangeRandom Glucose Reference Range is dependent on time and content of last meal. Glucose of more than 200 mg/dL in a nonstressed, ambulatory subject supports the diagnosis of Diabetes Mellitus. Hematocrit Auto (Bld) [Volum e fraction]Ordered By: Jose Angel Perez on 05-15-2023 Hematocrit (Bld) [Volume fraction] 29.9 % 34.0-46.4 [facility] Hemoglobin [Mass/volume] in BloodOrdered By: Jose Angel Perez on 05-15-2023 Hemoglobin (Bld) [Mass/Vol] 10.2 g/dL 11.8-15.4 [facility] Leukocytes [#/volume] correc mallorie for nucleated erythrocytes in Blood by Automated counOrdered By: Jose Angel Perez on 05-15-2023 WBC corrected for nucl RBC Auto (Bld) [#/Vol] 7.9 10*3/uL 3.8-11.6 [facility] Lymphocytes Auto (Bld) [#/Vo l]Ordered By: Jose Angel Perez on 05-15-2023 Lymphocytes (Bld) [#/Vol] 1.1 10*3/uL 1.00-4.8 [facility] Lymphocytes/100 WBC Auto (Bl d)Ordered By: Jose Angel Perez on 05-15-2023 Lymphocytes/100 WBC (Bld) 14.2 % . [facility] MCH Auto (RBC) [Entitic mass ]Ordered By: Jose Angel Perez on 05-15-2023 MCH (RBC) [Entitic mass] 31.1 pg 24.7-34.3 [facility] MCHC Auto (RBC) [Mass/Vol]Or dered By: Jose Angel Perez on 05-15-2023 MCHC (RBC) [Mass/Vol] 34.1 g/dL 32.0-35.0 [facility] MCV Auto (RBC) [Entitic vol] Ordered By: Jose Angel Perez on 05-15-2023 MCV (RBC) [Entitic vol] 91.1 fL 80-100 [facility] Monocytes Auto (Bld) [#/Vol] Ordered By: Jose Angel Perez on 05-15-2023 Monocytes (Bld) [#/Vol] 0.8 10*3/uL 0.0-0.8 [facility] Monocytes/100 WBC Auto (Bld) Ordered By: Jose Angel Perez on 05-15-2023 Monocytes/100 WBC (Bld) 10.7 % . [facility] Neutrophils Auto (Bld) [#/Vo l]Ordered By: Jose Angel Perez on 05-15-2023 Neutrophils (Bld) [#/Vol] 5.9 10*3/uL 1.8-7.7 [facility] Neutrophils/100 WBC Auto (Bl d)Ordered By: Jose Angel Perez on 05-15-2023 Neutrophils/100 WBC (Bld) 74.6 % . [facility] No Panel InformationOrdered By: Jose Angel Perez on 05-15-2023 Estimated GFR (CKD-EPI) > 60.0 mL/Min [facility] Creatinine Clearance (Chem 49.94 [facility] Nucleated erythrocytes [Pres ence] in Blood by Automated countOrdered By: Jose Angel Perez on 05-15-2023 Nucleated RBC Auto Ql (Bld) 0.0 /100{WBC} 0-0.5 [facility] Platelet mean volume Auto (B ld) [Entitic vol]Ordered By: Jose Angel Perez on 05-15-2023 Platelet mean volume (Bld) [Entitic vol] 8.2 fL 6.3-10.7 [facility] Platelets Auto (Bld) [#/Vol] Ordered By: Jose Angel Perez on 05-15-2023 Platelets (Bld) [#/Vol] 174 10*3/uL 150-450 [facility] Potassium [Moles/volume] in Serum or PlasmaOrdered By: Jose Angel Perez on 05-15-2023 Potassium [Moles/Vol] 4.4 mmol/L 3.5-5.1 [facility] RBC Auto (Bld) [#/Vol]Ordere d By: Jose Angel Perez on 05-15-2023 RBC (Bld) [#/Vol] 3.28 10*6/uL 3.60-5.00 [facility] Serum or plasma anion gap de terminationOrdered By: Jose Angel Perez on 05-15-2023 Anion gap [Moles/Vol] 8.1 mmol/L 6.0-15.0 [facility] Sodium [Moles/volume] in Ser um or PlasmaOrdered By: Jose Angel Perez on 05-15-2023 Sodium [Moles/Vol] 137 mmol/L 136-145 [facility] Urea nitrogen [Mass/volume] in Serum or PlasmaOrdered By: Jose Angel Perez on 05-15-2023 Urea nitrogen [Mass/Vol] 14 mg/dL 7-25 [facility] WBC Auto (Bld) [#/Vol]Ordere d By: Jose Angel Perez on 05-15-2023 WBC (Bld) [#/Vol] 7.9 10*3/uL 3.8-11.6 [facility] ABO/Rh Retypeon 05-14-2023 ABO/RH Recheck Result Negative Normal [facility] Comment on above: Result Comment: PERF ORMED BY: [place] [address] PATHOLOGIST [employer]AD PROJECT MANAGER VIRAL BANKS M.D. Basic Metabolic Panelon Anion gap [Moles/Vol] 7.4 mmol/L Normal 6.0-15.0 [facility] Comment on above: Performed By: #### B MP, CBC #### [facility] [address] Calcium [Mass/Vol] 8.5 mg/dL Low 8.6-10.3 [facility] Comment on above: Performed By: #### B MP, CBC #### [facility] [address] [place] [address] [place] Chloride [Moles/Vol] 106 mmol/L Normal 98-107 [facility] Comment on above: Performed By: #### B MP, CBC #### [facility] [address] [place] [address] [place] CO2 [Moles/Vol] 28.7 mmol/L Normal 21.0-31.0 [facility] Comment on above: Performed By: #### B MP, CBC #### [facility] [address] [place] [address] [place] Creatinine [Mass/Vol] 0.68 mg/dL Normal 0.60-1.20 [facility] Comment on above: Performed By: #### B MP, CBC #### [place] [address] [place] Creatinine Clr Calc Pharmacy 49.94 Normal [facility] Comment on above: Result Comment: PERF ORMED BY: [place] [address] PATHOLOGIST [employer]AD PROJECT MANAGER VIRAL BANKS M.D. Performed By: #### B MP, CBC #### [place] [address] [place] GFR/1.73 sq M.predicted MDRD (S/P/Bld) [Vol rate/Area] mL/min/{1.73_m2} Normal [facility] Comment on above: Performed By: #### B MP, CBC #### [place] [address] [place] Glucose [Mass/Vol] 143 mg/dL High 70-100 [facility] Comment on above: Result Comment: [place] Glucose Reference Range is dependent on time and content of last meal. Glucose of more than 200 mg/dL in a nonstressed, ambulatory subject supports the diagnosis of Diabetes Mellitus. ADA recommended reference range Performed By: #### B MP, CBC #### [place] [address] [place] Potassium [Moles/Vol] 4.1 mmol/L Normal 3.5-5.1 [facility] Comment on above: Performed By: #### B MP, CBC #### [place] [address] [place] Sodium [Moles/Vol] 138 mmol/L Normal 136-145 [facility] Comment on above: Performed By: #### B MP, CBC #### [place] [address] [place] Urea nitrogen [Mass/Vol] 17 mg/dL Normal 7-25 [facility] Comment on above: Performed By: #### B MP, CBC #### [facility] [address] Basic metabolic 1998 panelon 05-14-2023 Anion gap [Moles/Vol] 7.4 mmol/L 6.0 - 15.[address] [facility] Calcium [Mass/Vol] 8.5 mg/dL Low 8.6 - 10. 3 mg/dL [facility] Chloride [Moles/Vol] 106 mmol/L 98 - 10 7 mmol/L [facility] CO2 [Moles/Vol] 28.7 mmol/L 21.0 - 31.0 mmol/L [facility] Creatinine (U) [Mass/Vol] 0.68 mg/dL 0.60 - 1.20 mg/dL [facility] CREATININE CLR CALC PHARMACY 49.94 [facility] GFR/1.73 sq M.predicted MDRD (S/P/Bld) [Vol rate/Area] mL/min/{1.73_m2} [facility] Glucose [Mass/Vol] 143 mg/dL High 70 - 100 mg/dL [facility] Comment on above: Random Glucose Refer ence Range is dependent on time and content of last meal. Glucose of more than 200 mg/dL in a nonstressed, ambulatory subject supports the diagnosis of Diabetes Mellitus. ADA recommended reference range Interpretation and review of laboratory results Abnormal [facility] Potassium [Moles/Vol] 4.1 mmol/L 3.5 - 5.1 mmol/L [facility] Sodium [Moles/Vol] 138 mmol/L 136 - 145 mmol/L [facility] Urea nitrogen [Mass/Vol] 17 mg/dL 7 - 25 mg/d L [facility] CBC W Auto Differential pane l (Bld)on 05-14-2023 Basophils (Bld) [#/Vol] 0.0 10*3/uL 0.0 - 0.2 10*3/uL [facility] Basophils/100 WBC Manual cnt (Syn fld) 0.3 % . [facility] Eosinophils (Bld) [#/Vol] 0.0 10*3/uL 0.0 - 0.45 10*3/uL [facility] Eosinophils/100 WBC Manual cnt (Syn fld) 0.1 % . [facility] Erythrocyte distribution width (RBC) [Ratio] 13.9 % 11.9 - 15.3 % [facility] Hematocrit (Bld) [Volume fraction] 35.1 % 34.0 - 46.4 % [facility] Hemoglobin (Bld) [Mass/Vol] 11.8 g/dL 11.8 - 15.4 g/dL [facility] Interpretation and review of laboratory results Abnormal [facility] Lymphocytes (Bld) [#/Vol] 0.8 10*3/uL Low 1.00 - 4.8 10*3/uL [facility] Lymphocytes/100 WBC Manual cnt (Syn fld) 9.7 % . [facility] MCH (RBC) [Entitic mass] 30.5 pg 24. 7 - 34.3 pg [facility] MCHC (RBC) [Mass/Vol] 33.5 g/dL 32.0 - 35.0 g/dL [facility] MCV (RBC) [Entitic vol] 90.9 fL 80 - 100 fL [facility] Monocytes (Bld) [#/Vol] 0.1 10*3/uL 0.0 - 0.8 10*3/uL [facility] Monocytes+Macrophages/10 0 WBC Manual cnt (Syn fld) 1.2 % . [facility] Neutrophils (Bld) [#/Vol] 7.0 10*3/uL 1.8 - 7.7 10*3/uL [facility] Neutrophils/100 WBC Manual cnt (Syn fld) 88.7 % . [facility] NRBC 0.0 /100{WBC} 0 - 0.5 /100{WBC} [facility] Platelet mean volume (Bld) [Entitic vol] 8.4 fL 6.3 - 10.7 fL [facility] Platelets (Bld) [#/Vol] 195 10*3/uL 150 - 450 10*3/uL [facility] RBC LM.HPF (Urine sed) [#/Area] 3.86 /[HPF] 3.60 - 5.00 [facility] WBC (Bld) [#/Vol] 7.8 10*3/uL 3.8 - 11.6 10*3/uL [facility] WBC LM.HPF (Urine sed) [#/Area] 7.8 10*3/uL 3.8 - 11.6 10*3/uL [facility] Complete Blood Count Auto Di ffon 05-14-2023 Basophils (Bld) [#/Vol] 0.0 10*3/uL Normal 0.0-0.2 [facility] Comment on above: Result Comment: PERF ORMED BY: [place] [address] PATHOLOGIST [employer]AD PROJECT MANAGER VRIAL BANKS M.D. Performed By: #### B MP, CBC #### [address] Basophils/100 WBC (Bld) 0.3 % Normal . [facility] Comment on above: Performed By: #### B MP, CBC #### [address] Eosinophils (Bld) [#/Vol] 0.0 10*3/uL Normal 0.0-0.45 [facility] Comment on above: Performed By: #### B MP, CBC #### [address] Eosinophils/100 WBC (Bld) 0.1 % Normal . [facility] Comment on above: Performed By: #### B MP, CBC #### [address] Erythrocyte distribution width (RBC) [Ratio] 13.9 % Normal 11.9-15.3 [facility] Comment on above: Performed By: #### B MP, CBC #### [address] Hematocrit (Bld) [Volume fraction] 35.1 % Normal 34.0-46.4 [facility] Comment on above: Performed By: #### B MP, CBC #### [place] [address] [place] Hemoglobin (Bld) [Mass/Vol] 11.8 g/dL Normal 11.8-15.4 [facility] Comment on above: Performed By: #### B MP, CBC #### [place] [address] [place] Lymphocytes (Bld) [#/Vol] 0.8 10*3/uL Low 1.00-4.8 [facility] Comment on above: Performed By: #### B MP, CBC #### [facility] [address] [place] [address] [place] Lymphocytes/100 WBC (Bld) 9.7 % Normal . [facility] Comment on above: Performed By: #### B MP, CBC #### [facility] [address] MCH (RBC) [Entitic mass] 30.5 pg Normal 24.7-34.3 [facility] Comment on above: Performed By: #### B MP, CBC #### [facility] [address] MCV (RBC) [Entitic vol] 90.9 fL Normal 80-100 [facility] Comment on above: Performed By: #### B MP, CBC #### [facility] [address] Mean Corpuscular HGB Conc 33.5 g/dL Normal 32.0-35.0 [facility] Comment on above: Performed By: #### B MP, CBC #### [facility] [address] [place] [address] [place] Monocytes (Bld) [#/Vol] 0.1 10*3/uL Normal 0.0-0.8 [facility] Comment on above: Performed By: #### B MP, CBC #### [facility] [address] [place] [address] [place] Monocytes/100 WBC (Bld) 1.2 % Normal . [facility] Comment on above: Performed By: #### B MP, CBC #### [facility] [address] [place] [address] [place] Neutrophils (Bld) [#/Vol] 7.0 10*3/uL Normal 1.8-7.7 [facility] Comment on above: Performed By: #### B MP, CBC #### [facility] [address] Neutrophils/100 WBC (Bld) 88.7 % Normal . [facility] Comment on above: Performed By: #### B MP, CBC #### [facility] [address] NRBC% 0.0 /100{WBC} Normal 0-0.5 [facility] Comment on above: Performed By: #### B MP, CBC #### [facility] [address] Platelet mean volume (Bld) [Entitic vol] 8.4 fL Normal 6.3-10.7 [facility] Comment on above: Performed By: #### B MP, CBC #### [facility] [address] Platelets (Bld) [#/Vol] 195 10*3/uL Normal 150-450 [facility] Comment on above: Performed By: #### B MP, CBC #### [address] RBC (Bld) [#/Vol] 3.86 10*6/uL Normal 3.60-5.00 [facility] Comment on above: Performed By: #### B MP, CBC #### [address] WBC (Bld) [#/Vol] 7.8 10*3/uL Normal 3.8-11.6 [facility] Comment on above: Performed By: #### B MP, CBC #### [address] Bobby 05-14-2023 L Specimen: [id number] Received: 05/14/23 Status: JACKELYN Smith Num: [id number] Spec Type: Surgical Subm Dr: Jose Angel Perez Jr, DO Tissues: A Joint/Knee (LT KNEE) Procedures: HE, Gross/Micro L4, Decalcification Age/ Patient Sex Location Account Attending Physician Ely Nguyen 77/F [place] [id number] Jose Angel Perez Jr, DO SPEC NUM: [id number] RECD: 05/14/23 STATUS: JACKELYN SMITH NUM: [id number] KENNY: 05/14/[address]: Jose Angel Perez Jr, DO ENTERED: 05/14/[address] [facility] [address]: SHABBIR TYPE: Surgical DEPT: S ORDERED: GABRIEL, Gross/Micro L4, Decalcification ORDERED: GABRIEL, Gross/Micro L4, Decalcification Pathological Diagnosis Left knee bone and tissue, arthroplasty: - Severe degenerative osteoarthritis, demonstrating patchy severe erosion and cortical eburnation in various articular surfaces, in addition to at least moderate osteophytic degeneration, moderate irregular thickening and roughening of the meniscus cartilage, and patchy marked congestion of the associated hypertrophic tenosynovial soft tissue, compatible with the advanced degenerative joint disease of the left knee. Gross only examination Clinical Information DJD left knee, no exam required Gross Description Received in formalin labeled with the patient's name, date of and bone and tissue left knee is a 12.5 x 10.5 x 4.3 cm aggregate of wiggins-white bone and yellow-clemens rubbery tissue. The bone fragments have smooth to granular wiggins-clemens articular surfaces with eburnation identified. The cut surface of the bone is yellow-wiggins, focally hemorrhagic without discrete lesion. A gross photo is taken. Gross examination only. CPT Codes 09323 Specimen: [id number] Received: 05/14/23 Status: JACKELYN Smith Num: [id number] Spec Type: Surgical Subm Dr: Jose Angel Perez Jr DO Tissues: A Joint/Knee (LT KNEE) Procedures: GABRIEL, Javad/Micro L4, Decalcification Patient: Ely Nguyen [id number] (Continued) Specimen: [id number] Received: 05/14/23 (Continued) Signed (signatur e on file) Serenity Hanson MD 05/15/23 182 Specimen: [id number] Received: 05/14/23 Status: JACKELYN Smith Num: [id number] Spec Type: Surgical Subm Dr: Jose Angel Perez Jr, Tissues: A Joint/Knee (LT KNEE) Procedures: GABRIEL, Gross/Micro L4, Decalcification Patient: Ely Nguyen [id number] (Continued) Specimen: [id number] Received: 05/14/23 (Continued) Javad Photo Specimen: [id number] Received: 05/14/23 Status: JACKELYN Smith Num: [id number] Spec Type: Surgical Subm Dr: Jose Angel Perez Jr, DO Tissues: A Joint/Knee (LT KNEE) Procedures: Javad RIOS/Rayshawn Hsieh, Decalcification Patient: Ely Nguyen [id number] (Continued) Signed (signatur e on file) Serenity Hanson MD 05/15/23 1829 [facility] XR knee LT 2Von 05-14-2023 XR knee LT 2V [facility] Main [address] [address] XRay Report Signed Patient: Ely Nguyen MR#: [id number] : 1945 Acct:[id number] Age/Sex: 77 / F ADM Date: 05/14/23 Loc: Room: [address] [place] [address] Type: REG [facility] Attending Dr: Jose Angel Perez Jr DO Copies to: Jose Angel Perez Jr, DO Ordering Provider: Jose Angel Perez Jr, DO Date of Service: 05/14/23 XR/XR knee LT 2V: Total or partial knee, do in PACU LEFT KNEE - 2 views COMPARISON: 02/08/2018 and 05/06/2023 CLINICAL DATA: Follow-up after knee replacement AP and lateral views were obtained. Patient is status post interval knee replacement. The hardware appears intact and in appropriate position. No acute fracture or dislocation is noted. There is a small knee effusion and minimal air within the joint space. There are anterior vertical skin navin. XR/XR knee LT 2V IMPRESSION: SATISFACTORY POSTOPERATIVE APPEARANCE OF KNEE REPLACEMENT. Impression dictated by: Ariana Diaz M.D.05/14/2023 4:22 PM Dictation Location: [place] [address] Transcribed By: [facility] 05/14/23 162 Dictated By: Ariana Diaz MD 05/14/23 1620 Signed By: 05/14/23 162 [facility] XR tibia/fibula BIon 024 XR tibia/fibula BI [address] [address] XRay Report Signed Patient: Ely Nguyen MR#: [id number] : 1945 Acct:[id number] Age/Sex: 77 / F ADM Date: 05/06/23 Loc: XD Room: Type: REG CLI Attending Dr: Jose Angel Perez Jr, DO Copies to: Jose Angel Perez Jr, DO Ordering Provider: Jose Angel Perez Jr, DO Date of Service: 05/06/23 XR/XR femur BI: DJD L KNEE ([id number]) XR/XR tibia/fibula BI: . CLINICAL DATA: Presurgical planning for left knee replacement. COMPARISON: Left knee 02/08/2018 BILATERAL FEMUR AND TIB-FIB - one view Standing AP view to include both lower extremities was obtained with a long cassette. 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 There is continued narrowing of the lateral tibiofemoral joint compartment on that side with bone to bone contact and subchondral sclerosis. The tibiofemoral joint spaces on the right are uniform. There are no acute fractures involving the femur. There is no dislocation at the hips or knees. No soft tissue abnormalities are noted. The tibia and fibula on both sides show no fracture or bony destruction. There is no acute fracture or dislocation. The talar domes are intact. No soft tissue abnormalities are seen. XR/XR femur BI IMPRESSION: DEGENERATIVE CHANGE AT THE LEFT KNEE, GREATER LATERALLY WITH GENU VALGUM DEFORMITY. NO ACUTE BONY FINDINGS INVOLVING THE FEMURS OR TIB-FIB. Impression dictated by: Ariana Diaz M.D.05/06/2023 11:15 AM Dictation Location: [place] [address] Transcribed By: [facility] 05/06/23 1115 Dictated By: Ariana Diaz MD 05/06/23 1111 Signed By: 05/06/23 1115 Normal [facility] Electrocardiogram-EKGon 04-07 Electrocardiogram-EKG [id number] 73#[id number] - Other Lab [facility] - Other Lab Results [id number]#1.[facility] Automated erythrocytes count in urine sediment (number/area)Ordered By: Jose Angel Perez on 04-27-2023 RBC Auto (Urine sed) [#/Area] 0-1 [HPF] 0-4 [facility] Automated leukocytes count i n urine sediment (number/area)Ordered By: Jose Angel Perez on 04-27-2023 WBC Auto (Urine sed) [#/Area] 0-1 [HPF] 0-4 [facility] Basic Metabolic Panelon 04-07 Anion gap [Moles/Vol] 9.5 mmol/L Normal 6.0-15.0 [facility] Comment on above: Performed By: #### B MP, CBC ####[place] [id number] [facility] Calcium [Mass/Vol] 9.1 mg/dL Normal 8.6-10.3 [facility] Comment on above: Result Comment: PERF ORMED BY: [facility] [address] [place] [id number] PATHOLOGIST LEAD PROJECT MANAGER VIRAL BANKS M.D. Performed By: #### B MP, CBC ####[place] [id number] [facility] Chloride [Moles/Vol] 104 mmol/L Normal 98-107 [facility] Comment on above: Performed By: #### B MP, CBC ####[place] [id number] [facility] CO2 [Moles/Vol] 30.6 mmol/L Normal 21.0-31.0 [facility] Comment on above: Performed By: #### B MP, CBC ####[place] [id number] [facility] Creatinine [Mass/Vol] 0.79 mg/dL Normal 0.60-1.20 [facility] Comment on above: Performed By: #### B MP, CBC ####[place] [id number] [place] GFR/1.73 sq M.predicted MDRD (S/P/Bld) [Vol rate/Area] mL/min/{1.73_m2} Normal [facility] Comment on above: Performed By: #### B MP, CBC ####[place] [id number] [place] Glucose [Mass/Vol] 92 mg/dL Normal 70-100 [facility] Comment on above: Result Comment: [facility] Glucose Reference Range is dependent on time and content of last meal. Glucose of more than 200 mg/dL in a nonstressed, ambulatory subject supports the diagnosis of Diabetes Mellitus. ADA recommended reference range Performed By: #### B MP, CBC ####[facility] [id number] [place] [id number] [facility] Potassium [Moles/Vol] 4.1 mmol/L Normal 3.5-5.1 [facility] Comment on above: Performed By: #### B MP, CBC ####[facility] Tbt[address] Sodium [Moles/Vol] 140 mmol/L Normal 136-145 [facility] Comment on above: Performed By: #### B MP, CBC ####[facility] Cwl[address] [place] [id number] [facility] Urea nitrogen [Mass/Vol] 14 mg/dL Normal 7-25 [facility] Comment on above: Performed By: #### B MP, CBC ####[facility] [address]xr[address] [place] [id number] [facility] Basophils Auto (Bld) [#/Vol] Ordered By: Jose Angel Perez on 04-27-2023 Basophils (Bld) [#/Vol] 0.0 10*3/uL 0.0-0.2 [facility] Basophils/100 WBC Auto (Bld) Ordered By: Jose Angel Perez on 04-27-2023 Basophils/100 WBC (Bld) 0.7 % . [facility] Bilirubin Test strip Ql (U)O rdered By: Jose Angel Perez on 04-27-2023 Bilirubin Ql (U) Negative Negative [facility] Calcium [Mass/volume] in Ser um or PlasmaOrdered By: Jose Angel Perez on 04-27-2023 Calcium [Mass/Vol] 9.1 mg/dL 8.6-10.3 [facility] Carbon dioxide, total [Moles /volume] in Serum or PlasmaOrdered By: Jose Angel Perez on 04-27-2023 CO2 [Moles/Vol] 30.6 mmol/L 21.0-31.0 [facility] Chloride [Moles/volume] in S erin or PlasmaOrdered By: Jose Angel Perez on 04-27-2023 Chloride [Moles/Vol] 104 mmol/L 98-107 [facility] Color Auto (U)Ordered By: Janes Perez on 04-27-2023 Color (U) Yellow Yellow [facility] Complete Blood Count Auto Di ffon 04-27-2023 Basophils (Bld) [#/Vol] 0.0 10*3/uL Normal 0.0-0.2 [facility] Comment on above: Result Comment: PERF ORMED BY: [facility] [address] [place] [address] PATHOLOGIST LEAD PROJECT MANAGER VIRAL BANKS M.D. Performed By: #### B MP, CBC ####[place] [id number] [facility] Basophils/100 WBC (Bld) 0.7 % Normal . [facility] Comment on above: Performed By: #### B MP, CBC ####[place] [address] [place] [id number] [facility] Eosinophils (Bld) [#/Vol] 0.1 10*3/uL Normal 0.0-0.45 [facility] Comment on above: Performed By: #### B MP, CBC ####[place] [id number] [facility] Eosinophils/100 WBC (Bld) 3.0 % Normal . [facility] Comment on above: Performed By: #### B MP, CBC ####[place] [id number] [facility] Erythrocyte distribution width (RBC) [Ratio] 13.9 % Normal 11.9-15.3 [facility] Comment on above: Performed By: #### B MP, CBC ####[place] [id number] [facility] Hematocrit (Bld) [Volume fraction] 38.6 % Normal 34.0-46.4 [facility] Comment on above: Performed By: #### B MP, CBC ####[address] [address] [facility] Hemoglobin (Bld) [Mass/Vol] 13.0 g/dL Normal 11.8-15.4 [facility] Comment on above: Performed By: #### B MP, CBC ####[address] [address] [facility] Lymphocytes (Bld) [#/Vol] 0.9 10*3/uL Low 1.00-4.8 [facility] Comment on above: Performed By: #### B MP, CBC ####[place] [id number] [facility] Lymphocytes/100 WBC (Bld) 21.5 % Normal . [facility] Comment on above: Performed By: #### B MP, CBC ####[place] [id number] [facility] MCH (RBC) [Entitic mass] 30.5 pg Normal 24.7-34.3 [facility] Comment on above: Performed By: #### B MP, CBC ####[place] [id number] [facility] MCV (RBC) [Entitic vol] 90.4 fL Normal 80-100 [facility] Comment on above: Performed By: #### B MP, CBC ####[place] [id number] [facility] Mean Corpuscular HGB Conc 33.8 g/dL Normal 32.0-35.0 [facility] Comment on above: Performed By: #### B MP, CBC ####[place] [id number] [facility] Monocytes (Bld) [#/Vol] 0.3 10*3/uL Normal 0.0-0.8 [facility] Comment on above: Performed By: #### B MP, CBC ####[place] [id number] [facility] Monocytes/100 WBC (Bld) 8.0 % Normal . [facility] Comment on above: Performed By: #### B MP, CBC ####[place] [address] [place] [address] [place] Neutrophils (Bld) [#/Vol] 2.8 10*3/uL Normal 1.8-7.7 [facility] Comment on above: Performed By: #### B MP, CBC ####[place] [address] [place] [address] [facility] Neutrophils/100 WBC (Bld) 66.8 % Normal . [facility] Comment on above: Performed By: #### B MP, CBC ####[address] [address] [facility] NRBC% 0.2 /100{WBC} Normal 0-0.5 [facility] Comment on above: Performed By: #### B MP, CBC ####[place] [address] [place] [address] [facility] Platelet mean volume (Bld) [Entitic vol] 8.1 fL Normal 6.3-10.7 [facility] Comment on above: Performed By: #### B MP, CBC ####[address] [address] [place] Platelets (Bld) [#/Vol] 183 10*3/uL Normal 150-450 [facility] Comment on above: Performed By: #### B MP, CBC ####[address] [address] [place] RBC (Bld) [#/Vol] 4.27 10*6/uL Normal 3.60-5.00 [facility] Comment on above: Performed By: #### B MP, CBC ####[address] [address] [place] WBC (Bld) [#/Vol] 4.2 10*3/uL Normal 3.8-11.6 [facility] Comment on above: Performed By: #### B MP, CBC ####[address] [address] [facility] Creatinine [Mass/volume] in Serum or PlasmaOrdered By: Jose Angel Perez on 04-27-2023 Creatinine [Mass/Vol] 0.79 mg/dL 0.60-1.20 [facility] Dipstick and Microscopicon 0 04-27-2023 Appearance (U) Clear Normal Clear [facility] Comment on above: Order Comment: Comme nt c s if +u/a Name Collection Type:: Clean-Voided Midstream Performed By: #### A DDONUAPLUS #### [facility] [address] [place] [address] Bacteria,Urine None Seen Normal None Seen [facility] Comment on above: Order Comment: Comme nt c s if +u/a Name Collection Type:: Clean-Voided Midstream Performed By: #### A DDONUAPLUS #### [address] Bilirubin,Urine Negative Normal Negative [facility] Comment on above: Order Comment: Comme nt c s if +u/a Name Collection Type:: Clean-Voided Midstream Performed By: #### A DDONUAPLUS #### [facility] [address] [place] [address] Color (U) Yellow Normal Yellow [facility] Comment on above: Order Comment: Comme nt c s if +u/a Name Collection Type:: Clean-Voided Midstream Performed By: #### A DDONUAPLUS #### [facility] [address] [place] [address] [place] Glucose Ql (U) Normal Normal Normal [facility] Comment on above: Order Comment: Comme nt c s if +u/a Name Collection Type:: Clean-Voided Midstream Performed By: #### A DDONUAPLUS #### [facility] [address] [place] [address] [place] Hyaline Casts,Urine None Seen Normal 0-8 [facility] Comment on above: Order Comment: Comme nt c s if +u/a Name Collection Type:: Clean-Voided Midstream Result Comment: PERF ORMED BY: [place] [address] PATHOLOGIST LEAD PROJECT MANAGER VIRAL BANKS M.D. Performed By: #### A DDONUAPLUS #### [facility] [address] [place] [address] Ketones Ql (U) Negative Normal Negative [facility] Comment on above: Order Comment: Comme nt c s if +u/a Name Collection Type:: Clean-Voided Midstream Performed By: #### A DDONUAPLUS #### [address] Leukocyte esterase Test strip Ql (U) 1+ High Negative [facility] Comment on above: Order Comment: Comme nt c s if +u/a Name Collection Type:: Clean-Voided Midstream Performed By: #### A DDONUAPLUS #### [address] Nitrite,Urine Negative Normal Negative [facility] Comment on above: Order Comment: Comme nt c s if +u/a Name Collection Type:: Clean-Voided Midstream Performed By: #### A DDONUAPLUS #### [address] Occult Blood,Urine Negative Normal Negative [facility] Comment on above: Order Comment: Comme nt c s if +u/a Name Collection Type:: Clean-Voided Midstream Result Comment: PERF ORMED BY: [place] [address] PATHOLOGIST LEAD PROJECT MANAGER VIRAL BANKS M.D. Performed By: #### A DDONUAPLUS #### [place] [address] [place] pH (U) 6.0 [pH] Normal 5.0-9.0 [facility] Comment on above: Order Comment: Comme nt c s if +u/a Name Collection Type:: Clean-Voided Midstream Performed By: #### A DDONUAPLUS #### [address] Protein,Urine Negative Normal Negative [facility] Comment on above: Order Comment: Comme nt c s if +u/a Name Collection Type:: Clean-Voided Midstream Performed By: #### A DDONUAPLUS #### [address] RBC LM.HPF (Urine sed) [#/Area] 0 /[HPF] Normal 0-4 [facility] Comment on above: Order Comment: Comme nt c s if +u/a Name Collection Type:: Clean-Voided Midstream Performed By: #### A DDONUAPLUS #### [address] Specificy [place],Urine 1.014 Normal 1.001-1.030 [facility] Comment on above: Order Comment: Comme nt c s if +u/a Name Collection Type:: Clean-Voided Midstream Performed By: #### A DDONUAPLUS #### [address] Squamous Epithelial Cell,Urine 0-1 Normal 0-2 [facility] Comment on above: Order Comment: Comme nt c s if +u/a Name Collection Type:: Clean-Voided Midstream Performed By: #### A DDONUAPLUS #### [address] Urobilinogen,Urine Normal Normal Normal [facility] Comment on above: Order Comment: Comme nt c s if +u/a Name Collection Type:: Clean-Voided Midstream Performed By: #### A DDONUAPLUS #### [address] WBC LM.HPF (Urine sed) [#/Area] 0 /[HPF] Normal 0-4 [facility] Comment on above: Order Comment: Comme nt c s if +u/a Name Collection Type:: Clean-Voided Midstream Performed By: #### A DDONUAPLUS #### [address] ECG 12 lead ECGon 04-27-2023 ECG 12 lead ECG [facility] Main [place] [address] [place] [address] Electrocardiograph Report Signed Patient: Ely Nguyen MR#: [id number] : 1945 Acct:[id number] Age/Sex: 77 / F ADM Date: 04/27/23 Loc: PS Room: Type: [facility] Attending Dr: Jose Angel Perez Jr, DO Ordering Provider: Jose Angel Perez Jr, DO Date of Service: 04/27/23 ECG/ECG 12 lead ECG: surgery 05/14/2023 Copies to: Test Reason : Blood Pressure : / mmHG Vent. Rate : 063 BPM Atrial Rate : 063 BPM P-R Int : 152 ms QRS Dur : 092 ms QT Int : 408 ms P-R-T Axes : 060 038 043 degrees QTc Int : 417 ms Normal sinus rhythm Normal ECG No previous ECGs available Confirmed by PA NAVARRETE MD ([facility]) on 04/27/2023 2:31:05 PM Referred By: SAMANTHA Electronically Signed By:PA NAVARRETE MD Transcribed By: [facility] Signed By Pa Navarrete MD 0 04/27/23 1431 Normal [facility] Eosinophils Auto (Bld) [#/Vo l]Ordered By: Jose Angel Perez on 04-27-2023 Eosinophils (Bld) [#/Vol] 0.1 10*3/uL 0.0-0.45 [facility] Eosinophils/100 WBC Auto (Bl d)Ordered By: Jose Angel Perez on 04-27-2023 Eosinophils/100 WBC (Bld) 3.0 % . [facility] Erythrocyte distribution wid th Auto (RBC) [Ratio]Ordered By: Jose Angel Perez on 04-27-2023 Erythrocyte distribution width (RBC) [Ratio] 13.9 % 11.9-15.3 [facility] Glucose [Mass/volume] in Ser um or PlasmaOrdered By: Jose Angel Perez on 04-27-2023 Glucose [Mass/Vol] 92 mg/dL 70-100 [facility] Comment on above: ADA recommended refe rence rangeRandom Glucose Reference Range is dependent on time and content of last meal. Glucose of more than 200 mg/dL in a nonstressed, ambulatory subject supports the diagnosis of Diabetes Mellitus. Hematocrit Auto (Bld) [Volum e fraction]Ordered By: Jose Angel Perez on 04-27-2023 Hematocrit (Bld) [Volume fraction] 38.6 % 34.0-46.4 [facility] Hemoglobin [Mass/volume] in BloodOrdered By: Jose Angel Perez on 04-27-2023 Hemoglobin (Bld) [Mass/Vol] 13.0 g/dL 11.8-15.4 [facility] Ketones Auto test strip (U) [Mass/Vol]Ordered By: Jose Angel Perez on 04-27-2023 Ketones (U) [Mass/Vol] Negative Negative [facility] - UrinalysisOrder ed By: Jose Angel Perez on 04-27-2023 Hyaline casts LM Ql (Urine sed) None seen [LPF] 0-8 [facility] LeukoReduced RBCon LeukoReduced RBC READY Normal [facility] Leukocytes [#/volume] correc mallorie for nucleated erythrocytes in Blood by Automated counOrdered By: Jose Angel Perez on 04-27-2023 WBC corrected for nucl RBC Auto (Bld) [#/Vol] 4.2 10*3/uL 3.8-11.6 [facility] Lymphocytes Auto (Bld) [#/Vo l]Ordered By: Jose Angel Perez on 04-27-2023 Lymphocytes (Bld) [#/Vol] 0.9 10*3/uL 1.00-4.8 [facility] Lymphocytes/100 WBC Auto (Bl d)Ordered By: Jose Angel Perez on 04-27-2023 Lymphocytes/100 WBC (Bld) 21.5 % . [facility] MCH Auto (RBC) [Entitic mass ]Ordered By: Jose Angel Perez on 04-27-2023 MCH (RBC) [Entitic mass] 30.5 pg 24.7-34.3 [facility] MCHC Auto (RBC) [Mass/Vol]Or dered By: Jose Angel Perez on 04-27-2023 MCHC (RBC) [Mass/Vol] 33.8 g/dL 32.0-35.0 [facility] MCV Auto (RBC) [Entitic vol] Ordered By: Jose Angel Perez on 04-27-2023 MCV (RBC) [Entitic vol] 90.4 fL 80-100 [facility] Monocytes Auto (Bld) [#/Vol] Ordered By: Jose Angel Perez on 04-27-2023 Monocytes (Bld) [#/Vol] 0.3 10*3/uL 0.0-0.8 [facility] Monocytes/100 WBC Auto (Bld) Ordered By: Jose Angel Perez on 04-27-2023 Monocytes/100 WBC (Bld) 8.0 % . [facility] Neutrophils Auto (Bld) [#/Vo l]Ordered By: Jose Angel Perez on 04-27-2023 Neutrophils (Bld) [#/Vol] 2.8 10*3/uL 1.8-7.7 [facility] Neutrophils/100 WBC Auto (Bl d)Ordered By: Jose Angel Perez on 04-27-2023 Neutrophils/100 WBC (Bld) 66.8 % . [facility] Nitrite Test strip Ql (U)Ord ered By: Jose Angel Perez on 04-27-2023 Nitrite Ql (U) Negative Negative [facility] No Panel InformationOrdered By: Jose Angel Perez on 04-27-2023 Estimated GFR (CKD-EPI) > 60.0 mL/Min [facility]acy Creatinine Clearance (Chem N/A [facility] Nucleated erythrocytes [Pres ence] in Blood by Automated countOrdered By: Jose Angel Perez on 04-27-2023 Nucleated RBC Auto Ql (Bld) 0.2 /100{WBC} 0-0.5 [facility] PST Type and Screenon 2023 ABO and Rh group Nom (Bld) Blood group A Rh(D) negative Normal [facility] Comment on above: Order Comment: Date of Surgery: [id number] # of PRBC units on hold?: 2 Order Comment: Date of Surgery: [id number] # of PRBC units on hold?: 2 Result Comment: PERF ORMED BY: [facility] [address] [place] [address] PATHOLOGIST LEAD PROJECT MANAGER VIRAL BANKS M.D. Platelet mean volume Auto (B ld) [Entitic vol]Ordered By: Jose Angel Perez on 04-27-2023 Platelet mean volume (Bld) [Entitic vol] 8.1 fL 6.3-10.7 [facility] Platelets Auto (Bld) [#/Vol] Ordered By: Jose Angel Perez on 04-27-2023 Platelets (Bld) [#/Vol] 183 10*3/uL 150-450 [facility] Potassium [Moles/volume] in Serum or PlasmaOrdered By: Jose Angel Perez on 04-27-2023 Potassium [Moles/Vol] 4.1 mmol/L 3.5-5.1 [facility] Protein Auto test strip (U) [Mass/Vol]Ordered By: Jose Angel Perez on 04-27-2023 Protein (U) [Mass/Vol] Negative Negative Fi [facility] RBC Auto (Bld) [#/Vol]Ordere d By: Jose Angel Perez on 04-27-2023 RBC (Bld) [#/Vol] 4.27 10*6/uL 3.60-5.00 [facility] Serum or plasma anion gap de terminationOrdered By: Jose Angel Perez on 04-27-2023 Anion gap [Moles/Vol] 9.5 mmol/L 6.0-15.0 [facility] Sodium [Moles/volume] in Ser um or PlasmaOrdered By: Jose Angel Perez on 04-27-2023 Sodium [Moles/Vol] 140 mmol/L 136-145 [facility] Specific gravity Auto test s trip (U) [Rel density]Ordered By: Jose Angel Perez on 04-27-2023 Specific gravity (U) [Rel density] 1.014 1.001-1.030 [facility] Squamous epithelial cells de tection in urine sediment by light microscopyOrdered By: Jose Angel Perez on 04-27-2023 Epithelial cells.squamous LM Ql (Urine sed) 0-1 [HPF] 0-2 [facility] Urea nitrogen [Mass/volume] in Serum or PlasmaOrdered By: Jose Angel Perez on 04-27-2023 Urea nitrogen [Mass/Vol] 14 mg/dL 7-25 [facility] Urine bacteria detection by automated methodOrdered By: Jose Angel Perez on 04-27-2023 Bacteria Auto Ql (U) None seen None Seen [facility] Urine clarity by refractomet ry automatedOrdered By: Jose Angel Perez on 04-27-2023 Clarity Refractometry automated (U) Clear Clear [facility] Urine glucose measurement by automated test strip (mass/volume)Ordered By: Jose Angel Perez on 04-27-2023 Glucose Auto test strip (U) [Mass/Vol] Normal mg/dL Normal [facility] Urine hemoglobin detection b y automated test stripOrdered By: Jose Angel Perez on 04-27-2023 Hemoglobin Auto test strip Ql (U) Negative Negative [facility] Urine leukocyte esterase det ection by automated test stripOrdered By: Jose Angel Perez on 04-27-2023 Leukocyte esterase Auto test strip Ql (U) 1+ Negative [facility] Urobilinogen Auto test strip (U) [Mass/Vol]Ordered By: Jose Angel ePrez on 04-27-2023 Urobilinogen (U) [Mass/Vol] Normal mg/dL Normal [facility] WBC Auto (Bld) [#/Vol]Ordere d By: Jose Angel Perez on 04-27-2023 WBC (Bld) [#/Vol] 4.2 10*3/uL 3.8-11.6 [facility] pH Auto test strip (U)Ordere d By: Jose Angel Perez on 04-27-2023 pH (U) 6.0 [pH] 5.0-9.0 [facility] Consultation/Specialist Note on 04-20-2023 Consultation/Specialist Note [id number] [facility] 03-03-2023 Outside Records [id number] [facility] Lab - Other Lab Results [id number] 625#1.[facility] Rad - Other Radiology Report on 01-05-2023 Rad - Other Radiology Report [id number]#1.00[facility] Patient Handouton 12-10-2022 Patient Handout [id number]#1.00[facility] Handouton 12-09-2022 Patient Handout [id number][facility] BILon 023 US CAROTID ART JANINA EXAMINATION: US CAROTID ART JANINA HISTORY: Bilateral carotid artery stenosis COMPARISON: Ultrasound carotid duplex bilateral 01/19/2013 TECHNIQUE: Duplex Doppler ultrasound analysis of carotid and vertebral arteries. . Bilateral carotid arterial duplex examination was performed using B-mode, color flow and spectral analysis. Carotid stenosis is reported according to validated velocity parameters, similar to NASCET criteria. FINDINGS: RIGHT CAROTID ARTERY: Mild plaque within bulb and proximal ICA. No significant stenosis. RIGHT VERTEBRAL: Antegrade flow. Subclavian: PSV: 111.3 cm/s EDV: 6.7 cm/s CCA: Prox: PSV: 66.1 cm/s EDV: 16.0 cm/s Mid: PSV: 80.6 cm/s EDV: 19.2 cm/s Distal: PSV: 69.3 cm/s EDV: 14.4 cm/s BULB: PSV: 60.3 cm/s EDV: 14.2 cm/s ICA: Prox: PSV: 52.6 cm/s EDV: 14.2 cm/s Mid: PSV: 55.9 cm/s EDV: 16.4 cm/s Distal: PSV: 100.3 cm/s EDV: 25.4 cm/s ECA: PSV: 93.7 cm/s EDV: 13.2 cm/s VERTEBRAL: PSV: 52.1 cm/s EDV: 17.7 cm/s ICA/CCA ratio: PSV: 1.4 EDV: 1.8 LEFT CAROTID ARTERY: Mild plaque within bulb and proximal ICA. No significant stenosis. LEFT VERTEBRAL: Antegrade flow. Subclavian: PSV: 106.2 cm/s EDV: 0.0 cm/s CCA: Prox: PSV: 92.4 cm/s EDV: 15.6 cm/s Mid: PSV: 84.6 cm/s EDV: 19.5 cm/s Distal: PSV: 58.1 cm/s EDV: 15.3 cm/s BULB: PSV: 46.1 cm/s EDV: 9.8 cm/s ICA: Prox: PSV: 38.3 cm/s EDV: 12.1 cm/s Mid: PSV: 91.4 cm/s EDV: 26.8 cm/s Distal: PSV: 62.0 cm/s EDV: 21.9 cm/s ECA: PSV: 64.6 cm/s EDV: 12.8 cm/s VERTEBRAL: PSV: 31.2 cm/s EDV: 9.2 cm/s ICA/CCA ratio: PSV: 1.6 EDV: 1.8 IMPRESSION: 1. 0-49% flow stenosis within the right left carotid arteries. 2. Mild plaque within the bulb and proximal ICA bilaterally. No significant stenosis. Electronically authenticated by: STEPHIE GUADALUPE Date: 2022-04-17 16:02 Normal [facility] CT CSPINE WO CONon CT CSPINE WO CON EXAMINATION: CT C-SPINE WO CON HISTORY: HEADACHE COMPARISON: Cervical spine x-rays 12/27/2014. TECHNIQUE: CT Cervical spine without IV contrast. Coronal and sagittal reformations were performed. Dose reduction techniques were achieved by using automated exposure control and/or adjustment of mA and/or kV according to patient size and/or use of iterative reconstruction technique. FINDINGS: Maintenance of the normal cervical lordosis. Vertebral body heights and alignments exhibit no fracture or listhesis. Global decreased osseous mineralization. Age-related intervertebral disc space narrowing, endplate, uncovertebral and facet arthrosis. The dens and lateral masses of C1 are symmetric. No prevertebral soft tissue edema. No gross visualized irregularity of the skull base. Atherosclerosis of the vascular structures. The thoracic inlet is unremarkable. IMPRESSION: No acute abnormality Electronically authenticated by: DEAN CRANE Date: 2021-11-30 21:33 Normal [facility] CT HEAD WO CONon 11-30-2021 CT HEAD WO CON EXAMINATION: CT HEAD WO CON HISTORY: Patient fell and hit the back of the head. TECHNIQUE: Axial CT scans through the head were obtained without IV contrast administration. Dose reduction techniques were achieved by using: automated exposure control and/or adjustment of mA and /or kV according to patient size and/or use of iterative reconstruction technique. COMPARISON: 07/25/2015. FINDINGS: Moderate periventricular and subcortical low attenuation in the cerebral hemispheres without associated mass effect. To the limit of CT, the posterior fossa appears unremarkable. No intracranial hemorrhage is present. No depressed skull fracture is present. The ventricular system and cortical sulci are prominent. No area of abnormal mass effect is shown. The visualized orbits show no gross mass. The visualized paranasal sinuses show no air-fluid levels. Mastoid air cells are clear. IMPRESSION: 1. No depressed skull fracture or intracranial hemorrhage. 2. Moderate old microvascular ischemic changes. Age-related cerebral volume loss. Electronically authenticated by: TERESO CAT Date: 2021-11-30 21:46 Normal [facility] CT LSPINE WO CONon CT LSPLANO WO CON EXAM: CT LSPINE WO CON HISTORY: DORSALGIA, UNSPECIFIED COMPARISON: Lumbar spine MRI 05/29/2016. TECHNIQUE: Axial CT imaging is performed through the lumbar spine. Sagittal and coronal reformatted/reconst ructed sequences were additionally performed. FINDINGS: Maintenance of the normal lumbar lordosis. Again demonstrated is the retrolisthesis of the L5 vertebral body of approximately 6 mm. This appears degenerative in nature secondary to loss of the L5-S1 disc height with vacuum disc and reactive endplate osteophytes. The remainder of the vertebral body alignments are unremarkable. Vertebral body heights are normal. Global decreased osseous mineralization. Multilevel intervertebral disc space narrowing, endplate and facet arthrosis. Atherosclerosis of the aorta, visceral, iliac and pelvic arteries. Disc bulges at L2 2-L3, L3-L4, L4-L5 and calcified bulge at L5-S1. L5/L5 central canal stenosis secondary to the disc bulge and thickening of the posterior ligaments. Mild posterior ligament thickening at L3-L4. IMPRESSION: Lumbar spondylosis and degenerative disc disease with no gross visualized acute osseous abnormality. Electronically authenticated by: DEAN CRANE Date: 2021-11-30 21:53 Normal [facility] XR PELVIS 1_2 VIEWSon 2021 XR PELVIS 1_2 VIEWS EXAM: XR PELVIS 1_2 VIEWS HISTORY: Pain COMPARISON: None. TECHNIQUE: AP pelvis FINDINGS: IMPRESSION: Age-indeterminate pelvic side bending to the left. This is either positionally related or suggesting muscle spasm. No visualized fracture, dislocation or subluxation. Age-related changes of the pubic symphysis and sacroiliac joints. Spondylitic changes of the visualized lumbar spine. The hip joints are normal. Bowel gas pattern is nonobstructed. Electronically authenticated by: DEAN CRANE Date: 2021-11-30 21:31 Normal [facility] XR RIBS LT PA [place] 2 XR RIBS LT PA CH EXAM: XR RIBS LT PA CH HISTORY: Pain COMPARISON: Chest x-rays 04/02/2021 TECHNIQUE: 4 views FINDINGS: Hyperinflation of lung parenchyma with no acute consolidation or infiltrate. No pneumothorax or pleural effusion. The cardiac, mediastinal and hilar contours are normal. The visualized osseous structures exhibit no gross abnormality. Generative changes of the thoracic spine. IMPRESSION: No visualized acute abnormality Electronically authenticated by: DEAN CRANE Date: 2021-09-30 15:37 Normal [facility] CBC AUTO DIFFon 09-18-2021 BASO # 0.0 103/ul Normal 0.0-0.1 [facility] Comment on above: Performed By: #### C BC #### [facility] [address] [address] [address] Alex Hanson Basophils/100 WBC (Bld) 0.4 % Normal 0.2-2.0 [facility] Comment on above: Performed By: #### C BC #### [facility] [address] [place] [address] Dr. Alex Hanson EO # 0.2 103/ul Normal 0.0-0.7 [facility] Comment on above: Performed By: #### C BC #### [facility] [address] [address] [address] Alex Hanson Eosinophils/100 WBC (Bld) 4.2 % Normal 0.9-7.0 [facility] Comment on above: Performed By: #### C BC #### [facility] [address] [address] [address] Alex Hanson Erythrocyte distribution width (RBC) [Ratio] 13.2 % Normal 11.0-15.0 [facility] Comment on above: Performed By: #### C BC #### [facility] [address] [place] [address] Dr. Alex Hanson Hematocrit (Bld) [Volume fraction] 38.0 % Normal 36.0-48.0 [facility] Comment on above: Performed By: #### C BC #### [facility] [address] [place] [address] Dr. Alex Hanson Hemoglobin (Bld) [Mass/Vol] 12.2 g/dL Normal 12.0-16.0 [facility] Comment on above: Performed By: #### C BC #### [facility] [address] [place] [address] Dr. Alex Hanson IG # 0.02 10e3/ul Normal 0.00-0.03 [facility] Comment on above: Performed By: #### C BC #### [facility] [address] [place] [address] Dr. Alex Hanson IG % 0.4 % Normal 0.0-0.5 [facility] Comment on above: Performed By: #### C BC #### [facility] [address] [place] [address] Dr. Alex Hanson LYMPH # 1.6 103/ul Normal 1.2-3.8 [facility] Comment on above: Performed By: #### C BC #### [facility] [address] [place] [address] Dr. Alex Hanson Lymphocytes/100 WBC (Bld) 30.9 % Normal 20.5-60.0 [facility] Comment on above: Performed By: #### C BC #### [facility] [address] [place] [address] Dr. Alex Hanson MANUAL DIFF REQ NO Normal [facility] Comment on above: Performed By: #### C BC #### [facility] [address] [place] [address] Dr. Alex Hanson MCH (RBC) [Entitic mass] 30.0 pg Normal 26.7-34.0 [facility] Comment on above: Performed By: #### C BC #### [facility] [address] [place] [address] Dr. Alex Hanson MCHC (RBC) [Mass/Vol] 32.1 g/dL Normal 29.9-35.2 [facility] Comment on above: Performed By: #### C BC #### [facility] [address] [place] [address] Dr. Alex Hanson MCV (RBC) [Entitic vol] 93.4 fL Normal 81.0-99.0 [facility] Comment on above: Performed By: #### C BC #### [facility] [address] [place] [address] Dr. Alex Hanson MONO # 0.5 103/ul Normal 0.3-0.8 [facility] Comment on above: Performed By: #### C BC #### [facility] [address] [place] [address] Dr. Alex Hanson Monocytes/100 WBC (Bld) 9.6 % Normal 1.7-12.0 [facility] Comment on above: Performed By: #### C BC #### [facility] [address] [place] [address] Dr. Alex Hanson NEUT # 2.9 103/ul Normal 1.4-6.5 [facility] Comment on above: Performed By: #### C BC #### [facility] [address] [place] [address] Dr. Alex aHnson Neutrophils/100 WBC (Bld) 54.5 % Normal 43.0-75.0 [facility] Comment on above: Performed By: #### C BC #### [facility] [address] [place] [address] Dr. Alex Hanson Platelet mean volume (Bld) [Entitic vol] 9.7 fL Normal 9.5-13.5 [facility] Comment on above: Performed By: #### C BC #### [facility] [address] [place] [address] Dr. Alex Hanson PLT 181 103/ul Normal 150-450 [facility] Comment on above: Performed By: #### C BC #### [facility] [address] [place] [address] Dr. Alex Hanson RBC 4.07 106/ul Critically low 4.20-5.40 [facility] Comment on above: Performed By: #### C BC #### [facility] [address] [place] [address] Dr. Alex Hanson WBC 5.3 103/ul Normal 4.0-11.0 [facility] Comment on above: Performed By: #### C BC #### [facility] [address] [place] [address] Dr. Alex Hanson PROF 14(COMP METB)on 022 Albumin [Mass/Vol] 3.4 g/dL Normal 3.4-5.0 [facility] Comment on above: Performed By: #### T 4, CMP, TSH #### [facility] [address] [place] [address] Dr. Alex Hanson Albumin/Globulin [Mass ratio] 1.0 {ratio} Normal [facility] Comment on above: Performed By: #### T 4, CMP, TSH #### [facility] [address] [place] [address] Dr. Alex Hanson ALP [Catalytic activity/Vol] 65 U/L Normal 46-116 [facility] Comment on above: Performed By: #### T 4, CMP, TSH #### [facility] [address] [place] [address] Dr. Alex Hanson ALT [Catalytic activity/Vol] 14 U/L Normal 14-59 [facility] Comment on above: Performed By: #### T 4, CMP, TSH #### [facility] [address] [place] [address] Dr. Alex Hanson Anion gap [Moles/Vol] 11.2 mmol/L Normal [facility] Comment on above: Performed By: #### T 4, CMP, TSH #### [facility] [address] [place] [address] Dr. Alex Hanson AST [Catalytic activity/Vol] 14 U/L Critically low 15-37 [facility] Comment on above: Performed By: #### T 4, CMP, TSH #### [facility] [address] [place] [address] Dr. Alex Hanson Bilirubin [Mass/Vol] 0.4 mg/dL Normal 0.2-1.0 [facility] Comment on above: Performed By: #### T 4, CMP, TSH #### [facility] [address] [place] [address] Dr. Alex Hanson Calcium [Mass/Vol] 8.8 mg/dL Normal 8.5-10.1 [facility] Comment on above: Performed By: #### T 4, CMP, TSH #### [facility] [address] [place] [address] Dr. Alex Hanson Chloride [Moles/Vol] 105 mmol/L Normal 98-107 [facility] Comment on above: Performed By: #### T 4, CMP, TSH #### [facility] [address] [place] [address] Dr. Alex Hanson CO2 [Moles/Vol] 27.6 mmol/L Normal 21.0-32.[address] [facility] Comment on above: Performed By: #### T 4, CMP, TSH #### [facility] [address] [place] [address] Dr. Alex Hanson Creatinine [Mass/Vol] 0.74 mg/dL Normal 0.55-1.02 [facility] Comment on above: Performed By: #### T 4, CMP, TSH #### [facility] [address] [place] [address] Dr. Alex Hanson EGFR-AF GIBRALTARIAN >60 Normal >=60 [facility] Comment on above: Performed By: #### T 4, CMP, TSH #### [facility] [address] [place] [address] Dr. Alex Hanson EGFR-NON AF GIBRALTARIAN >60 Normal >=60 [facility] Comment on above: Performed By: #### T 4, CMP, TSH #### [facility] [address] [place] [address] Dr. Alex Hanson Globulin (S) [Mass/Vol] 3.4 g/dL Normal [facility] Comment on above: Performed By: #### T 4, CMP, TSH #### [facility] [address] [address] [address] Alex Hanson Glucose [Mass/Vol] 73 mg/dL Critically low 74-106 [facility] Comment on above: Performed By: #### T 4, CMP, TSH #### [facility] [address] [place] [address] Dr. Alex Hanson Potassium [Moles/Vol] 3.8 mmol/L Normal 3.5-5.1 [facility] Comment on above: Performed By: #### T 4, CMP, TSH #### [facility] [address] [place] [address] Dr. Alex Hanson Protein [Mass/Vol] 6.8 g/dL Normal 6.4-8.2 [facility] Comment on above: Performed By: #### T 4, CMP, TSH #### [facility] [address] [place] [address] Dr. Alex Hanson Sodium [Moles/Vol] 140 mmol/L Normal 136-145 [facility] Comment on above: Performed By: #### T 4, CMP, TSH #### [facility] [address] [place] [address] Dr. Alex Hanson Urea nitrogen [Mass/Vol] 16.0 mg/dL Normal 7.0-18.0 [facility] Comment on above: Performed By: #### T 4, CMP, TSH #### [facility] [address] [place] [address] Dr. Alex Hanson Urea nitrogen/Creatinine [Mass ratio] 21.6 mg/mg Normal [facility] Comment on above: Performed By: #### T 4, CMP, TSH #### [facility] [address] [place] [address] Dr. Alex Hanson T4on 09-18-2021 T4 [Mass/Vol] 7.30 ug/dL Normal 4.80-13.[address] [facility] Comment on above: Performed By: #### T 4, CMP, TSH #### [facility] [address] [place] [address] Dr. Alex Hanson TSHon 09-18-2021 TSH 1.326 uIU/mL Normal 0.358-3.740 [facility] Comment on above: Performed By: #### T 4, CMP, TSH #### [facility] [address] [place] [address] Dr. Alex Hanson NM STRESS/REST MULTIon 05-21 NM STRESS/REST MULTI Patient: ELY NGUYEN Exam Date: 05/21/2021 : 1945 Gender:F Ordering : DR SE TRAN D.O. Admission #: [id number] Family : Order #: [id number] CLICK HERE TO VIEW EXAM RADIOLOGY REPORT PROCEDURE: RADIONUCLIDE IMAGING STRESS/REST MULTI COMPARISON: None. INDICATIONS: Chest pain, dyspnea TECHNIQUE: Exam Description: Stress/Rest one day protocol gated SPECT Rest Imagin.9 mCi Tc-99m Cardiolite IV on 05/21/2021 Stress Imaging 31.4 mCi Tc-99m Cardiolite IV on 05/21/2021 Exercise Protocol: 0.4 mg Lexiscan given IV Heart Rate (bpm): Rest: 60 Max: 91 PMHR: 62 Blood Pressure: Rest: 164/86 Max: 164/86 Symptoms: Rest and peak stress ECG findings were normal and the exercise portion of the study was normal per attending physician Dr. Og . For more details please see separate cardiac stress test report. FINDINGS: QUALITY OF STUDY: Excellent. PERFUSION DEFECT: None. LOCATION: N/A SIZE: N/A. SEVERITY: N/A. TYPE: N/A. WALL MOTION: Normal. LV SIZE: Normal. 63 mL. TID / TCD: None; 0.82 LVEF: Normal. Calculated EF 72%. SUMMARY: Myocardial perfusion imaging study is NORMAL. CONCLUSION: 1. Normal myocardial perfusion scan period no reversible ischemia 2. Normal exercise test Dictated by: Dean Juarez MD on 05/22/2021 at 08:23 Approved by: Dean Juarez MD on 05/22/2021 at 08:24 Normal [facility] Vital Signs Date Time Vital Sign Value Performing Clinician Nick augustine 05-15-2023 12:01-0500 Diastolic blood pressure 64 mm[Hg] DO Jose Angel Perez Jr Work Phone: [facility] 05-15-2023 12:01-0500 Heart rate 75 /min DO Jose Agnel Perez Jr Work Phone: [facility] 05-15-2023 12:01-0500 Respiratory rate 18 /min DO Jose Angel Perez Jr Work Phone: [facility] 05-15-2023 12:01-0500 SaO2% (BldA) [Mass fraction] 90 % DO Jose Angel Perez Jr Work Phone: [facility] 05-15-2023 12:01-0500 Systolic blood pressure 107 mm[Hg] DO Jose Angel Perez Jr Work Phone: [facility] 05-15-2023 06:07-0500 Body weight 62.3 kg DO Jose Angel Perez Jr Work Phone: [facility] 05-15-2023 03:24-0500 Body temperature 98.1 [degF] DO Jose Angel Perez Jr Work Phone: [facility] 05-15-2023 00:01-0500 Inhaled oxygen flow rate 2 L/min DO Jose Angel Perez Jr Work Phone: [facility] 05-14-2023 11:33-0500 Body mass index (BMI) [Ratio] 26.6 kg/m2 DO Jose Angel Perez Jr Work Phone: [facility] 05-14-2023 09:53-0500 Body height 152.4 cm DO Jose Angel Perez Jr Work Phone: [facility] 04-08-2023 12:30-0500 Body height 157.48 cm Andressa Thibodeaux Other [employer] Other 04-08-2023 12:30-0500 Body mass index (BMI) [Ratio] 25.42 kg/m2 Andressa Thibodeaux Other [employer] Other 04-08-2023 12:30-0500 Body temperature 97.1 [degF] Andressa Thibodeaux Other [employer] Other 04-08-2023 12:30-0500 Body weight 63.05 kg Andressa Thibodeaux Other [employer] Other 04-08-2023 12:30-0500 Diastolic blood pressure 75 mm[Hg] Andressa Thibodeaux Other [employer] Other 04-08-2023 12:30-0500 Respiratory rate 18 /min Andressa Thibodeaux Other [employer] Other 04-08-2023 12:30-0500 SaO2% (BldA) [Mass fraction] 95 % Andressa Thibodeaux Other [employer] Other 04-08-2023 12:30-0500 Systolic blood pressure 145 mm[Hg] Andressa Thibodeaux Other [employer] Other 03-02-2023 10:00-0500 Body height 157.48 cm Peter Milian Other [employer] Other 03-02-2023 10:00-0500 Body mass index (BMI) [Ratio] 25.05 kg/m2 Peter Milian Other [employer] Other 03-02-2023 10:00-0500 Body temperature 97 [degF] Peter Milian Other [employer] Other 03-02-2023 10:00-0500 Body weight 62.14 kg Peter Milian Other [employer] Other 03-02-2023 10:00-0500 Diastolic blood pressure 80 mm[Hg] Christopher Rukhsana Other [employer] Other 03-02-2023 10:00-0500 Respiratory rate 20 /min Christopher Rukhsana Other [employer] Other 03-02-2023 10:00-0500 SaO2% (BldA) [Mass fraction] 97 % Christopher Rukhsana Other [employer] Other 03-02-2023 10:00-0500 Systolic blood pressure 144 mm[Hg] Christopher Rukhsana Other [employer] Other 09-17-2021 16:15-0400 Body height 157.48 cm Christgiannaer Rukhsana Other [employer] Other 09-17-2021 16:15-0400 Body mass index (BMI) [Ratio] 23.96 kg/m2 Christopher Rukhsana Other [employer] Other 09-17-2021 16:15-0400 Body temperature 98.2 [degF] Christopher Rukhsana Other [employer] Other 09-17-2021 16:15-0400 Body weight 59.42 kg Christopher Rukhsana Other [employer] Other 09-17-2021 16:15-0400 Diastolic blood pressure 76 mm[Hg] Christopher Rukhsana Other [employer] Other 09-17-2021 16:15-0400 Respiratory rate 20 /min Christopher Rukhsana Other [employer] Other 09-17-2021 16:15-0400 SaO2% (BldA) [Mass fraction] 94 % Peter Milian Other [employer] Other 09-17-2021 16:15-0400 Systolic blood pressure 129 mm[Hg] Peter Milian Other [employer] Other 02-24-2019 12:07-0500 BMI (Body Mass Index) 26.89 kg/m2 [facility] 02-24-2019 12:07-0500 Body weight 66.68 kg [facility] 02-24-2019 12:07-0500 Height 157.5 cm [facility] 01-03-2019 14:17-0400 BMI (Body Mass Index) 26.89 kg/m2 [facility] 01-03-2019 14:17-0400 Body weight 66.68 kg [facility] 01-03-2019 14:17-0400 Height 157.5 cm [facility] Encounters Encounter Date Encounter Type Care Provider Facility Start: 11-11-2023 End: 11-11-2023 ambulatory DO SE P HOUSE Facility:[facility] Start: 11-03-2023 End: 11-03-2023 ambulatory DO SE P HOUSE Facility:[facility] Start: 08-21-2023 End: 08-21-2023 ambulatory ONESIMO BRYAN Not Available Start: 08-13-2023 End: 08-13-2023 ambulatory DO SE P HOUSE Facility:[facility] Start: 08-12-2023 End: 08-12-2023 ambulatory DO SE P HOUSE Facility:[facility] Start: 07-24-2023 End: 07-24-2023 ambulatory ONESIMO BRYAN Not Available Start: 07-22-2023 End: 07-23-2023 ambulatory MARYAM TREJO Not Available Start: 07-02-2023 End: 07-02-2023 ambulatory MALENA PLUNKETT Not Available Start: 06-26-2023 End: 06-27-2023 ambulatory ONESIMO BRYAN Not Available Start: 06-24-2023 End: 06-24-2023 ambulatory MARYAM TREJO Not Available Start: 06-18-2023 End: 06-18-2023 ambulatory ARMANDO KELBLEY Not Available Start: 06-11-2023 End: 06-11-2023 ambulatory ARMANDO KELBLEY Not Available Start: 06-05-2023 End: 06-05-2023 ambulatory ARMANDO KELBLEY Not Available Start: 06-04-2023 End: 06-04-2023 ambulatory DO SE [place] HOUSE Facility:[facility] Start: 06-03-2023 End: 06-03-2023 ambulatory ARMANDO KELBLEY Not Available Start: 06-01-2023 End: 06-01-2023 ambulatory ARMANDO KELBLEY Not Available Start: 05-29-2023 Chart abstracting Onesimo pickett PA Work Phone: [facility] Start: 05-29-2023 End: 05-29-2023 ambulatory ONESIMO BRYAN Not Available Start: 05-19-2023 End: 05-19-2023 ambulatory Sol Washington PT Work Phone: [facility] Comment on above: Unilateral primary o steoarthritis, left knee (Primary Dx); Status post left knee replacement; Acute pain of left knee Start: 05-18-2023 End: 05-18-2023 ambulatory Sol Washington PT Work Phone: [facility] Comment on above: Unilateral primary o steoarthritis, left knee (Primary Dx); Status post left knee replacement; Acute pain of left knee Start: 05-18-2023 Telephone encounter Onesimo Bryan PA Work Phone: [facility] Comment on above: Post-op Problem Start: 05-16-2023 Telephone encounter Onesimo ROSA Work Phone: [facility] Start: 05-16-2023 End: 05-16-2023 ambulatory Sol Washington PT Work Phone: [facility] Comment on above: Unilateral primary o steoarthritis, left knee (Primary Dx); Status post left knee replacement; Acute pain of left knee Start: 05-15-2023 External Result Encounter Jr. Jose Angel Perez DO Work Phone: [facility] Unsolicited Start: 05-15-2023 External Result Encounter Jr. Jose Angel Perez DO Work Phone: [facility] Unsolicited Start: 05-14-2023 Non-patient / Non-visit DO Jose Angel Perez Jr Work Phone: [facility] Work Phone: Start: 05-14-2023 Chart abstracting Jr. Jose Angel Perez DO Work Phone: [facility] Start: 05-14-2023 External Result Encounter Jr. Jose Angel Perez DO Work Phone: [facility] Unsolicited Start: 05-14-2023 External Result Encounter Jr. Jose Angel Perez DO Work Phone: [facility] Unsolicited Start: 05-14-2023 End: 05-15-2023 ambulatory NON STAFF Facility:[facility] Start: 05-14-2023 End: 05-15-2023 Admission to same day surgery center DO Jose Angel Perez Jr Work Phone: [facility] [address] [place] Start: 05-14-2023 End: 05-15-2023 ambulatory NON STAFF [facility] Work Phone: Start: 05-12-2023 Refmarcelo Trejo NP Work Phone: [facility] Comment on above: Post-operative pain (Primary Dx) Start: 05-07-2023 End: 05-07-2023 ambulatory Doreen Tessa Other [employer] Other Start: 05-07-2023 Telephone encounter Doreen Zarate [facility] Start: 05-06-2023 End: 05-06-2023 ambulatory Jose Angel Perez Jr Facility:[facility] Start: 05-06-2023 End: 05-06-2023 ambulatory DO Jose Angel Perez Jr Work Phone: [facility] Work Phone: Start: 05-06-2023 End: 05-06-2023 Patient encounter procedure DO Jose Angel Perez Jr Work Phone: [facility] [address] Work Phone: Start: 05-05-2023 End: 05-05-2023 ambulatory MARGARET ECHEVERRIA Not Available Start: 05-04-2023 End: 05-04-2023 ambulatory SE TRAN Facility:[facility] Start: 04-27-2023 End: 04-27-2023 ambulatory Jose Angel Perez Jr Facility:[facility] Start: 04-27-2023 End: 04-27-2023 ambulatory DO Jose Angel Perez Jr Work Phone: [facility] Work Phone: Start: 04-27-2023 End: 04-27-2023 Patient encounter procedure DO Jose Angel Perez Jr Work Phone: [facility] Work Phone: Start: 04-21-2023 End: 04-21-2023 ambulatory Peter Milian Other [employer] [facility] Room [address] Other Start: 04-21-2023 Telephone encounter Peter arreola [facility] Start: 04-16-2023 End: 04-16-2023 ambulatory JOVIGAIL FIELDSLOURDES Not Available Start: 04-15-2023 End: 04-16-2023 ambulatory JR., JOSE ANGEL C STEPANIC Not Available Start: 04-15-2023 End: 04-15-2023 ambulatory JR., JOSE ANGEL C STEPANIC Not Available Start: 04-08-2023 End: 04-08-2023 ambulatory Andressa Thibodeaux Other [employer] [facility] Room [address] Other Start: 04-08-2023 Office outpatient visit 15 minutes Andressa Thibodeaux [facility] [place] Start: 04-08-2023 End: 04-08-2023 Patient encounter procedure DO Jose Angel Perez Jr Work Phone: [facility] [place] Work Phone: Start: 03-02-2023 End: 03-02-2023 ambulatory Christopher Rukhsana Other [employer] Other Start: 03-02-2023 Office outpatient visit 15 minutes Christopher Rukhsana [facility] Start: 03-02-2023 End: 03-02-2023 Patient encounter procedure DO Jose Angel Perez Jr Work Phone: [facility] Work Phone: Start: 12-09-2022 End: 12-09-2022 ambulatory SE [facility] Start: 05-06-2022 End: 05-06-2022 ambulatory Christopher Rukhsana Other [employer] Other Start: 05-06-2022 Telephone encounter Christshlomo Martinez maxwell [facility] Start: 04-17-2022 End: 04-18-[address] SE TRAN Facility:[facility] Start: 11-30-2021 End: 12-01-[address] SENIA PERALES Facility:[facility] Start: 09-30-2021 End: 09-30-[address] CECELIA CAMACHO Facility:[facility] Start: 09-19-2021 End: 09-19-2021 ambulatory Christopher Rukhsana Other [employer] Other Start: 09-19-2021 Telephone encounter Christgiannaer Aven maxwell [facility] Start: 09-18-2021 End: 09-19-[address] SE TRAN [employer] Other Start: 09-18-2021 Telephone encounter Christopher Aven maxwell [facility] Start: 09-17-2021 End: 06-14-2022 ambulatory Christopher Rukhsana Other [facility] Room [address] Other Start: 09-17-2021 Office outpatient visit 15 minutes Peter Milian [facility] Start: 05-21-2021 End: 05-22-[address] SE TRAN Facility:[facility] Start: 02-24-2019 End: 02-24-2019 Office outpatient visit 25 minutes Lincoln Obando Work Phone: [facility] Comment on above: Closed compression f racture of thoracic vertebra with routine healing, subsequent encounter (Primary Dx); Closed compression fracture of L4 lumbar vertebra with routine healing, subsequent encounter; Spinal stenosis at L4-L5 level Start: 02-10-2019 End: 02-10-2019 Telephone encounter Snow Rowlandy [facility] Comment on above: Advice Only Start: 01-03-2019 End: 01-03-2019 Office outpatient new 45 minutes Lincoln Obando Work Phone: [facility] Comment on above: Closed compression f racture of thoracic vertebra, initial encounter (Primary Dx); Closed compression fracture of fourth lumbar vertebra, initial encounter; Spondylolisthesis of lumbar region; Disorder of bone Procedures Date Procedure Procedure Detail Performing Clinician Start: 05-15-2023 Basic metabolic pane l calcium total . Jose Angel Perez DO Work Phone: Start: 05-15-2023 Complete blood count with white cell differential, automated Jr. Jose Angel Perez DO Work Phone: Start: 05-14-2023 Basic metabolic pane l calcium total Jr. Jose Angel Perez DO Work Phone: Start: 05-14-2023 Complete blood count with white cell differential, automated Jr. Jose Angel Perez DO Work Phone: Start: 05-14-2023 X-ray of left knee DO Sonya Perez Jr Work Phone: Start: 05-14-2023 Total replacement of left knee joint DO Jose Angel Perez Jr Work Phone: Start: 05-06-2023 Plain X-ray of bilat eral femurs DO Jose Angel Perez Jr Work Phone: Start: 05-06-2023 Plain X-ray of bilat eral tibia and bilateral fibula DO Jose Angel Perez Jr Work Phone: Start: 04-27-2023 Antibody screen Jose Angel Perez Jr Comment on above: Order Comment: Date of Surgery: [id number] # of PRBC units on hold?: 2 Result Comment: PERF ORMED BY: [facility] [place] [address] PATHOLOGIST LEAD PROJECT MANAGER VIRAL BANKS M.D. Order Comment: Date of Surgery: [id number] # of PRBC units on hold?: 2 Plan of Treatment Date Care Activity Detail Author Start: 05-29-2023 Chart abstracting 05/29/2023 A bstract [facility] [address] [facility] [address] [place] [address] Onesimo Bryan PA [address] [facility] [address] [place] [address] [facility] Start: 05-29-2023 End: 05-29-2023 Patient encounter procedure 05/29/2023 9:30 AM EST Office Visit [facility] [address] [facility] [address] [place] [address] Onesimo Bryan PA [address] [facility] [address] [place] [address] [facility] Start: 05-15-2023 [facility] Start: 05-14-2023 End: 05-14-2023 Patient encounter procedure 05/14/2023 11:15 AM EST Procedure Visit [facility] Jr. Jose Angel Perez DO [address] [facility] [address] [place] [address] [facility] Start: 05-13-2023 Referral to clinical inspector poising [facility] Start: 05-13-2023 Hospital admission [facility] Start: 04-27-2023 [facility] Start: 02-24-2019 End: 02-24-2019 Office Visit 02/24/2019 Office Visit Orthopaedics Lincoln Obando MD [address] [facility] [address] [place] [address] [phone] [facility] Start: 02-02-2019 End: 02-02-2019 Office Visit 02/02/2019 Office Visit OrthopaedicLincoln Bull MD [address] [facility] [place] [address] [phone] [facility] Start: 12-05-2018 Influenza vaccination INFLUENZA VACC INE (#1) [facility] Start: 08-27-2012 Pneumococcal vaccination PNEUMOCOCCAL VACCINE SERIES (1 of 2 - PCV13) [facility] Start: 08-27-1997 Colonoscopy COLON CANCER S CREENING DISCUSSION [facility] Start: 08-27-1997 Zoster vaccine hzv live for subcutaneous use ZOSTER (SHINGLES) VACCINE (1 of 2) [facility] Start: 1987 Fasting lipid profile LIPID SCREENIN G [facility] Start: 1987 Screening mammography MAMMOGRA M SCREENING DISCUSSION [facility] Start: 08-27-1968 Screening for malignant neoplasm of cervix PAP SMEAR DISCUSSION [facility] Start: 08-27-1966 Third diphtheria, tetanus and acellular pertussis (DTaP) vaccination TDAP (ADULT) [facility] Start: 08-27-1965 Tetanus vaccination [facility] Start: 1945 Hepatitis C antibody , confirmatory test HEPATITIS C VIRUS SCREENING [facility] Start: 1945 Screening for osteoporosis DEXA SCAN DISCUSSION [facility] Bone density scan BONE DENSITY A XIAL (HIP, PELVIS, SPINE) Imaging Routine Disorder of bone Ordered: 01/03/2019 [facility] Comment on above: Ordered: 01/03/2019 MRI of lumbar spine MRI SPINE ANA MBAR WITHOUT CONTRAST Imaging Routine Closed compression fracture of fourth lumbar vertebra, initial encounter Spondylolisthesis of lumbar region Ordered: 01/03/2019 [employer] Comment on above: Ordered: 01/03/2019 MRI of thoracic spine MRI SPINE THORACIC WITHOUT CONTRAST Imaging Routine Closed compression fracture of thoracic vertebra, initial encounter Ordered: 01/03/2019 [employer] Comment on above: Ordered: 01/03/2019 [facility] mgmt & trainj initial enctr ea 15 mins [facility]MT [facility] TRAINJ INITIAL ENCTR EA 15 MINS [facility] - OFFICE PERFORMED Routine Spinal stenosis at L4-L5 level Ordered: 02/24/2019 [employer] Comment on above: Ordered: 02/24/2019 Patient referral Moses fisher [facility] Work Phone: Immunizations Immunization Date Immunization Notes Care Provider Letitia cheng 07-17-2020 diphtheria, tetanus toxoids and pertussis vaccine Jr. Perez DO Work Phone: [facility] Payers Date Payer Category Payer Medicare ANTHEM MEDICARE ADVANTAGE ANTHEM MEDICARE ADVANTAGE [id number] 2023-Present [address] [place] [address] [id number] 2023 Self-pay [id number] 2022 Medicare [id number] 2018 Medicare MEDICARE HU[employer]NA HMO PPO MEDICARE HU[employer]NA HMO PPO xxxxxxxxx 2018-Present xxxxxxxxx [id number] 1959 Medicare [id number] [id number] 1947 Unknown [id number] 2.16.840.1.499607.3.579.2.59 1947 Unknown [id number] 2.16.840.1.273408.3.579.2.59 1947 Unknown [id number] 2.16.840.1.234793.3.579.2.593 1947 Unknown [id number] 2.16.840.1.365855.3.579.2.593 1947 Unknown [id number] 2.16.840.1.071237.3.579.2.593 1947 Unknown [id number] 2.16.840.1.223434.3.579.2.125 9 1947 Unknown [id number] 2.16.840.1.757610.3.579.2.125 9 1947 Unknown [id number] 2.16.840.1.701539.3.579.2.125 9 1947 Unknown [id number] 2.16.840.1.862983.3.579.2.125 9 1947 Unknown [id number] 2.16.840.1.877574.3.579.2.125 9 1947 Unknown [id number] 2.16.840.1.610293.3.579.2.125 1947 Unknown [id number] 2.16.840.1.350495.3.579.2.125 9 1947 Unknown [id number] 2.16.840.1.353029.3.579.2.125 9 1947 Unknown [id number] 2.16.840.1.129502.3.579.2.125 9 1947 Unknown [id number] 2.16840.1.479316.3.579.2.125 1947 Unknown [id number] 2.16.840.1.992396.3.579.2.125 1947 Unknown [id number] 2.16.840.1.231238.3.579.2.125 1947 Unknown [id number] 2.16.840.1.862768.3.579.2.125 1947 Unknown [id number] 2.16.840.1.649733.3.579.2.125 1947 Unknown [id number] 2.16.840.1.048055.3.579.2.125 9 1947 Unknown [id number] 2.16.840.1.901837.3.579.2.125 9 1947 Unknown [id number] 2.16.840.1.432252.3.579.2.125 9 1947 Unknown [id number] 2.16.840.1.313055.3.579.2.125 9 1947 Unknown [id number] 2.16.840.1.832909.3.579.2.125 9 1947 Unknown [id number] 2.16.840.1.674251.3.579.2.718 1947 Unknown [id number] 2.16.840.1.175148.3.579.2.718 1947 Unknown [id number] 2.16.840.1.704712.3.579.2.718 1947 Unknown [id number] 2.16.840.1.746310.3.579.2.718 1947 Unknown [id number] 2.16.840.1.838505.3.579.2.718 1947 Unknown [id number] 2.16.840.1.699562.3.579.2.718 1947 Unknown [id number] 2.16.840.1.182151.3.579.2.718 Medicare Medicare [id number] Unknown [id number] 2.16.840.1.015008.3.579.2.531 Unknown [id number] 2.16840.1.515021.3.579.2.531 Unknown [id number] 2.16.840.1.644130.3.579.2.531 Social History Date Type Detail Facility Start: 01-03-2019 End: 05-14-2023 Tobacco smoking status NHIS Former smoker [facility] End: 04-06-2014 History of tobacco use Current smoker [facility] End: 04-06-2014 History of tobacco use Cigarette Smoker [facility] Start: 1945 Sex Assigned At Not on file A [facility] Start: 04-16-2023 Sex Assigned At N [employer] Other Start: 1945 Sex Assigned At Female F [facility] Start: 04-15-2023 Tobacco smoking status [facility] Never smoked tobacco [facility] Start: 04-15-2023 Tobacco use and exposure Smokeless tobacco non-user [facility] Start: 04-16-2023 End: 05-14-2023 Alcohol intake Current drinker of alcohol (finding) [facility] Start: 04-16-2023 History of Social function [facility] Start: 05-14-2023 Alcohol Comment Alcohol: 6 or more drinks on one occasion / less than monthly . Caffeine intake: 2-3 cups per day [facility] Start: 03-26-2023 Alcohol Comment Alcohol: 6 or more drinks on one occasion / less than monthly . Caffeine: 2-3 cups per day [facility] Goals Date Patient Goal Desired Activity /State Functional Status Date Assessment Result Facility 05-15-2023 Functional status Patient at Baseline [facility] Work Phone: Mental Status Date Assessment Result Facility 05-15-2023 Cognitive function Cognitive Sta tus Patient at Baseline [facility] Work Phone: Clinical Notes 09-17-2021 to 08-13-2023 Telephone Encounter - SHELLEY Hurd - 05/19/2023 1:49 PM ESTTelephone Encounter - SHELLEY Hurd - 05/19/2023 1:49 PM ESTTelephone Encounter - Emilee Angel RN - 05/18/2023 10:10 AM EST Note Date & Type Note Facility 08-13-2023 Note - From: SE TRAN DO To: [facility] Clinical Pool ([facility] Sent: 08/13/2023 11:21:56 EDT Subject: FW: Medication Management Due Date/Time: 08/14/2023 10:37:00 EDT Caller Name: ELY NGUYEN; Caller Number: Isak , M --------- From: [employer] [facility][id number] To: SE TRAN DO Sent: August 13, 2023 9:37:03 AM CDT Subject: Medication Management Due: August 14, 2023 12:17:08 AM CDT On Hold Pending Signature Drug: pregabalin (pregabalin 50 mg oral capsule), 1 cap(s) Oral BID Quantity: 60 cap(s) Days Supply: 0 Refills: 0 Substitutions Allowed Notes from Pharmacy: Dispensed Drug: pregabalin (pregabalin 50 mg oral capsule), TAKE 1 CAPSULE BY MOUTH TWICE DAILY Quantity: 60 cap(s) Days Supply: 30 Refills: 0 Substitutions Allowed Notes from Pharmacy: This prescription was filled on 08/13/2023. Any refills authorized will be placed on file. --------- From: Monik Candelario To: [employer][id number] Sent: 08/13/2023 12:32:13 EDT Subject: FW: Medication Management Not Approved: Patient has requested refill too soon pregabalin (pregabalin 50 mg capsule) TAKE 1 CAPSULE BY MOUTH TWICE DAILY Qty: 60 cap(s) Days Supply: 30 Refills: 0 Substitutions Allowed Route To Pharmacy - [employer] [facility] [employer] [facility][id number] Note from Pharmacy: This prescription was filled on 08/13/2023. Any refills authorized will be placed on file. Signed by Monik Candelario [facility] 05-19-2023 Telephone encount er Note Reviewed pictures from therapist yesterday/ today. Doing well. Bruising present.. swelling controlled.. may resume gentle therapy, ( therapist aware. ) [facility] 05-19-2023 Miscellaneous Notes Formattin g of this note might be different from the original. Reviewed pictures from therapist yesterday/ today. Doing well. Bruising present.. swelling controlled.. may resume gentle therapy, ( therapist aware. ) Spoke with patient and encouraged to ice and elevate - instructed her that we would see how the leg is after PT visit today at 3pm and to call me if symptoms were to worsen - patient was in understanding and grateful. Patient had a LT TKA on 05/14/2023 and called to let us know that her incision feels warm and is red. Patient did state that she does not get out of the house well , please advise. documented in this encounter [facility] 05-19-2023 History of Presen t illness Narrative Physical Therapy Physical Therapy Daily Visit Patient Name: Ely Nguyen Today's Date: 05/19/2023 Subjective Current Problem: s/p left TKA with pain and difficulty walking. Pt is being seen today for daily follow up visit for s/p left TKA. Pt voiced her knee feels better today. Date of Surgery: 05-14-2023 with [place] [facility] [place] Current deficits: Difficulty with all mobility secondary to recent left TKA. Visit Number 3. Time In: 3:00 am; Time out: 3:30 am Total time: 25 minutes [id number] TherEx x 10 minutes [id number] gait training x 15 minutes Precautions: WBAT left LE; left TKA protocol. Pain Management: The patient is complaining of pain located in the left knee and thigh region. Pain rating 7/10. The pain is improved by ice and medication 1 every 6 hours of percocet and Tylenol as needed. The pain is aggravated by activity. The pain is described as aching, throbbing and stiffness. Prior level of function: Ambulation: antalgic gait pattern on left LE. Assistive devices: FWW, cane, shower. ADL and IADL: Independent. Sees pain management. Home Environment: Pt lives with her son in a one story home with 2-3 steps to enter with no HR. Bedroom and bath on first floor level home. Has tub/shower combo. Objective General Visit Information: Passive ROM: Left knee 10 to 85 degrees. Joint play: hypomobile. Manual muscle testing: Left knee flexion/extension: 3-/5. Palpation: Minimal warmth upon palpation, consistent with post-operative conditions. Surgical incision intact with navin and AB dressing; minimal serum drainage. Minimal edema throughout thigh and knee, but localized over patella, but less then yesterday. Some redness over knee region but blanchable. Bruising developing throughout whole leg. Pictures sent to [facility] 360. Special tests: Negative Fede Sign. Functional Mobility: Bed Mobility: CGA Sit to Stand: SBA Stair Negotiation: TBA Ambulation: Patient is ambulating with mild antalgic type pattern with FWW, step to gait pattern, fair heel to toe gait pattern; SBA. Pt ambulated approx 120' x 2 with slow gissell. Limited knee flexion during swing phase. Tinetti Gait and Balance Assessment: Sitting balance: Steady, safe = 1. Rises from chair: Able, uses arms to help = 1. Attempts to rise: Able, requires > 1 attempt = 1. Immediate standing balance (first 5 seconds): Steady but uses walker or other support = 1. Standing balance: Steady but uses walker or other support = 1. Nudged: Staggers, grabs, catches self = 1. Eyes closed: Steady = 1. Turning 360 degrees: Discontinuous steps = 0 , Unsteady (grabs, staggers) = 0. Sitting down: Uses arms or not a smooth motion = 1. Balance Score: 8/16. Indication of gait: No hesitancy = 1. Step of length and height: Step to = 0. Foot clearance: L foot clears floor = 1 , R foot clears floor = 1. Step symmetry: Right and left step length no equal = 0. Step continuity: Stopping or discontinuity between steps = 0. Path: Mild/moderate deviation or uses w/ aid = 1. Trunk: No sway but flex knees or back or uses arms for stability = 1. Walking time: Heels apart = 0. Gait score: 12. Total Score = Balance + Gait . Tinetti tool score: < = 18 High. Physical Education Intervention Physical Therapy Education: Pt was educated on the importance of cyrotherapy and elevation. Reviewed proper pillow placement under LE to maintain good extension. Stressed the importance also of ambulating at at least every other hour for 2-5 minutes duration and completion of HEP 2x/day. Patient was educated with regards to signs and symptoms to monitor with respect to blood clots and infection. Therapeutic Exercise : Pt completed left LE supine exercises of glut sets, quad sets and ankle pumps (hourly) at this time, 10x. Pt completed 10x of knee flexion with gentle flexion stretch with plastic bag and added seated LAQ. Completed standing heel raises and left marches. HEP updated. Gait Training: Gait training this date with FWW with instruction for step to gait pattern for left affective LE with increase cues for heel to toe pattern and knee flexion during swing. Therapeutic Activity: Worked on proper sit to stand, stand to sit transfers this date from bedside; good carryover with SBA only with verbal cues for proper sequencing and hand placement. Assessment & Plan Assessment Impairments: abnormal gait, abnormal or restricted ROM, impaired balance, impaired physical strength, pain with function and weight-bearing intolerance Barriers to therapy: Pain Prognosis: good Goals Short Term Goals Goal 1 : Patient will be independent with HEP with good compliance and independence. Goal 2 : Patient will demonstrate 5-90 degrees of passive range of motion of left knee flexion. Goal 3 : Patient will ambulate >6 minutes modified independently with wheeled walker with good reciprocal gait pattern. Goal 4 : Patient will demonstrate all sit< >stand transfers and supine< >sit bed mobility, modified independent with no cues for proper sequencing. Goal 5 : Patient will ascend/descend 3-4 steps with AD and railing with supervision, step to gait pattern. Dye Colorist Formulator Goals Goal 1 : Patient will demonstrate 0-110 degrees of active left knee flexion in order to improve indpendence with ambulation up and down steps. Goal 2 : Patient will demonstrate 4+/5 or better right knee strength in order to safely return to activities of interest. Goal 3 : Patient will ambulate community distances on even and uneven surfaces, independently with no AD, normalized gait pattern and < 1/10 report of pain in leftt knee. Goal 4 : Pt will ascend/descend 5-12 steps with railing with reciprical gait pattern independently. Goal 5 : Patient will demonstrate good static and dynamic standing balance for >15 mintues without LOB or increase in knee pain. Goal 6 : Pt will improve Tinetti Balance test to 28/28 to indicate no fall risk. Plan Planned modality interventions: cryotherapy Planned therapy interventions: bed mobility training, dressing changes, functional ROM exercises, gait training, home exercise program, manual therapy, neuromuscular re-education, soft tissue mobilization, strengthening, stretching, therapeutic activities and transfer training Frequency: 1-3x/week. Duration in weeks: 3 Treatment plan discussed with: patient Plan details: Educated to continue icing and elevating. This PT re-corrected and educated patient on proper knee extension when elevating with pillows. Will follow up end of week. documented in this encounter [facility] 05-18-2023 History of Presen t illness Narrative Physical Therapy Physical Therapy Daily Visit Patient Name: Ely Nguyen Today's Date: 05/18/2013 Subjective Current Problem: s/p left TKA with pain and difficulty walking. Pt is being seen today for daily follow up visit for s/p left TKA. Pt voiced her knee has been hot and swollen. Date of Surgery: 05-14-2023 [place] [facility] [place] Current deficits: Difficulty with all mobility secondary to recent left TKA. Visit Number 2. Time In: 3:00 am; Time out: 3:30 am Total time: 25 minutes [id number] TherEx x 10 minutes [id number] gait training x 15 minutes Precautions: WBAT left LE; left TKA protocol. Pain Management: The patient is complaining of pain located in the left knee and thigh region. Pain rating 7/10. The pain is improved by ice and medication 1 every 6 hours of percocet and Tylenol as needed. The pain is aggravated by activity. The pain is described as aching, throbbing and stiffness. Prior level of function: Ambulation: antalgic gait pattern on left LE. Assistive devices: FWW, cane, shower. ADL and IADL: Independent. Sees pain management. Home Environment: Pt lives with her son in a one story home with 2-3 steps to enter with no HR. Bedroom and bath on first floor level home. Has tub/shower combo. Objective General Visit Information: Passive ROM: Left knee 10 to 70 degrees. Joint play: hypomobile. Manual muscle testing: Left knee flexion/extension: 3-/5. Palpation: Minimal warmth upon palpation, consistent with post-operative conditions. Surgical incision intact with navin and AB dressing; minimal serum drainage. Minimal edema throughout thigh and knee, but localized over patella. Some redness over knee region but blanchable. Special tests: Negative Fede Sign. Functional Mobility: Bed Mobility: CGA Sit to Stand: SBA Stair Negotiation: TBA Ambulation: Patient is ambulating with mild antalgic type pattern with FWW, step to gait pattern, fair heel to toe gait pattern; SBA. Pt ambulated approx 120' x 2 with slow gissell. Limited knee flexion during swing phase. Tinetti Gait and Balance Assessment: Sitting balance: Steady, safe = 1. Rises from chair: Able, uses arms to help = 1. Attempts to rise: Able, requires > 1 attempt = 1. Immediate standing balance (first 5 seconds): Steady but uses walker or other support = 1. Standing balance: Steady but uses walker or other support = 1. Nudged: Staggers, grabs, catches self = 1. Eyes closed: Steady = 1. Turning 360 degrees: Discontinuous steps = 0 , Unsteady (grabs, staggers) = 0. Sitting down: Uses arms or not a smooth motion = 1. Balance Score: 8/16. Indication of gait: No hesitancy = 1. Step of length and height: Step to = 0. Foot clearance: L foot clears floor = 1 , R foot clears floor = 1. Step symmetry: Right and left step length no equal = 0. Step continuity: Stopping or discontinuity between steps = 0. Path: Mild/moderate deviation or uses w/ aid = 1. Trunk: No sway but flex knees or back or uses arms for stability = 1. Walking time: Heels apart = 0. Gait score: 5/12. Total Score = Balance + Gait 13/28. Tinetti tool score: < = 18 High. Physical Education Intervention Physical Therapy Education: Pt was educated on the importance of cyrotherapy and elevation. Reviewed proper pillow placement under LE to maintain good extension. Stressed the importance also of ambulating at at least every other hour for 2-5 minutes duration and completion of HEP 2x/day. Patient was educated with regards to signs and symptoms to monitor with respect to blood clots and infection. Therapeutic Exercise : Pt completed left LE supine exercises of glut sets, quad sets and ankle pumps (hourly) at this time, 10x. Pt completed 10x of knee flexion with gentle flexion stretch with plastic bag. Completed standing heel raises and left marches. HEP issued and instructed. Gait Training: Gait training this date with FWW with instruction for step to gait pattern for left affective LE with increase cues for heel to toe pattern and knee flexion during swing. Therapeutic Activity: Worked on proper sit to stand, stand to sit transfers this date from bedside; good carryover with SBA only with verbal cues for proper sequencing and hand placement. Assessment & Plan Assessment Impairments: abnormal gait, abnormal or restricted ROM, impaired balance, impaired physical strength, pain with function and weight-bearing intolerance Barriers to therapy: Pain Prognosis: good Goals Short Term Goals Goal 1 : Patient will be independent with HEP with good compliance and independence. Goal 2 : Patient will demonstrate 5-90 degrees of passive range of motion of left knee flexion. Goal 3 : Patient will ambulate >6 minutes modified independently with wheeled walker with good reciprocal gait pattern. Goal 4 : Patient will demonstrate all sit< >stand transfers and supine< >sit bed mobility, modified independent with no cues for proper sequencing. Goal 5 : Patient will ascend/descend 3-4 steps with AD and railing with supervision, step to gait pattern. Dye Colorist Formulator Goals Goal 1 : Patient will demonstrate 0-110 degrees of active left knee flexion in order to improve indpendence with ambulation up and down steps. Goal 2 : Patient will demonstrate 4+/5 or better right knee strength in order to safely return to activities of interest. Goal 3 : Patient will ambulate community distances on even and uneven surfaces, independently with no AD, normalized gait pattern and < 1/10 report of pain in leftt knee. Goal 4 : Pt will ascend/descend 5-12 steps with railing with reciprical gait pattern independently. Goal 5 : Patient will demonstrate good static and dynamic standing balance for >15 mintues without LOB or increase in knee pain. Goal 6 : Pt will improve Tinetti Balance test to 28/28 to indicate no fall risk. Plan Planned modality interventions: cryotherapy Planned therapy interventions: bed mobility training, dressing changes, functional ROM exercises, gait training, home exercise program, manual therapy, neuromuscular re-education, soft tissue mobilization, strengthening, stretching, therapeutic activities and transfer training Frequency: 1-3x/week. Duration in weeks: 3 Treatment plan discussed with: patient Plan details: Educated to continue icing and elevating. This PT corrected and educated patient on proper knee extension when elevating. Will follow up tomorrow to check on incision and edema. documented in this encounter [facility] 05-18-2023 Telephone encount er Note Spoke with patient and encouraged to ice and elevate - instructed her that we would see how the leg is after PT visit today at 3pm and to call me if symptoms were to worsen - patient was in understanding and grateful. [facility] 05-18-2023 Telephone encount er Note Patient states that nausea has resolved and she is taking Zofran in am. [facility] 05-18-2023 Miscellaneous Notes Formattin g of this note might be different from the original. Patient states that nausea has resolved and she is taking Zofran in am. Per Sol Chacon Pt with post op nausea on home visit, rx zofran sent, precautions relayed if symptoms worsened.. Please see how pt is doing Thursday with home phone call checks. documented in this encounter [facility] 05-18-2023 Telephone encount er Note Patient had a LT TKA on 05/14/2023 and called to let us know that her incision feels warm and is red. Patient did state that she does not get out of the house well , please advise. [facility] 05-16-2023 Telephone encount er Note Per Sol Chacon Pt with post op nausea on home visit, rx zofran sent, precautions relayed if symptoms worsened.. Please see how pt is doing Thursday with home phone call checks. [facility] 05-16-2023 History of Presen t illness Narrative Physical Therapy Physical Therapy Evaluation Patient Name: Ely Nguyen Today's Date: 05/16/2013 Subjective Current Problem: s/p left TKA with pain and difficulty walking. Pt is being seen today for initial evaluation for s/p left TKA. Pt voiced she has had some nausea. Date of Surgery: 05-14-2023 with [place] [facility] [place] Current deficits: Difficulty with all mobility secondary to recent left TKA. Visit Number 1. Time In: 9:00 am; Time out: 9:45 am Total time: 45 minutes [id number] PT Eval x 20 minutes [id number] TherEx x 15 minutes [id number] gait training x 10 minutes Precautions: WBAT left LE; left TKA protocol. Pain Management: The patient is complaining of pain located in the left knee and thigh region. Pain rating 5-7/10. The pain is improved by ice and medication 1 every 6 hours of percocet and Tylenol as needed. The pain is aggravated by activity. The pain is described as aching, throbbing and stiffness. Prior level of function: Ambulation: antalgic gait pattern on left LE. Assistive devices: FWW, cane, shower. ADL and IADL: Independent. Sees pain management. Home Environment: Pt lives with her son in a one story home with 2-3 steps to enter with no HR. Bedroom and bath on first floor level home. Has tub/shower combo. Objective General Visit Information: Passive ROM: Left knee 10 to 70 degrees. Joint play: hypomobile. Manual muscle testing: Left knee flexion/extension: 3-/5. Palpation: Minimal warmth upon palpation, consistent with post-operative conditions. Surgical incision intact with navin and AB dressing; minimal bloody dressing. Minimal edema throughout thigh and knee. Special tests: Negative Fede Sign. Functional Mobility: Bed Mobility: CGA Sit to Stand: SBA Stair Negotiation: TBA Ambulation: Patient is ambulating with mild antalgic type pattern with FWW, step to gait pattern, fair heel to toe gait pattern; SBA. Pt ambulated approx 120' x 2 with slow gissell. Limited knee flexion during swing phase. Tinetti Gait and Balance Assessment: Sitting balance: Steady, safe = 1. Rises from chair: Able, uses arms to help = 1. Attempts to rise: Able, requires > 1 attempt = 1. Immediate standing balance (first 5 seconds): Steady but uses walker or other support = 1. Standing balance: Steady but uses walker or other support = 1. Nudged: Staggers, grabs, catches self = 1. Eyes closed: Steady = 1. Turning 360 degrees: Discontinuous steps = 0 , Unsteady (grabs, staggers) = 0. Sitting down: Uses arms or not a smooth motion = 1. Balance Score: 8/16. Indication of gait: No hesitancy = 1. Step of length and height: Step to = 0. Foot clearance: L foot clears floor = 1 , R foot clears floor = 1. Step symmetry: Right and left step length no equal = 0. Step continuity: Stopping or discontinuity between steps = 0. Path: Mild/moderate deviation or uses w/ aid = 1. Trunk: No sway but flex knees or back or uses arms for stability = 1. Walking time: Heels apart = 0. Gait score: /12. Total Score = Balance + Gait 13/28. Tinetti tool score: < = 18 High. Physical Education Intervention Physical Therapy Education: Pt was educated on the importance of cyrotherapy and elevation. Reviewed proper pillow placement under LE to maintain good extension. Stressed the importance also of ambulating at at least every other hour for 2-5 minutes duration and completion of HEP 2x/day. Patient was educated with regards to signs and symptoms to monitor with respect to blood clots and infection. Therapeutic Exercise : Pt completed left LE supine exercises of glut sets, quad sets and ankle pumps (hourly) at this time, 10x. Pt completed 10x of knee flexion with gentle flexion stretch with plastic bag. Completed standing heel raises and left marches. HEP issued and instructed. Gait Training: Gait training this date with FWW with instruction for step to gait pattern for left affective LE with increase cues for heel to toe pattern and knee flexion during swing. Therapeutic Activity: Worked on proper sit to stand, stand to sit transfers this date from bedside; good carryover with SBA only with verbal cues for proper sequencing and hand placement. Assessment & Plan Assessment Impairments: abnormal gait, abnormal or restricted ROM, impaired balance, impaired physical strength, pain with function and weight-bearing intolerance Barriers to therapy: Pain Prognosis: good Goals Short Term Goals Goal 1 : Patient will be independent with HEP with good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 Park MD Other Provider Active Sta rt: May 14, 2023 Megan Pinon APRN Other Provider Active Start : May 14, 2023 Steffanie Peralta APRN Other Provider Active St art: May 14, 2023 Erica Zelaya MD Other Provider Active Start: F ebruary 2023 Ryan Badillo MD Other Provider Active S tart: May 14, 2023 Ana Hutchinson APRN Other Provider Active S tart: May 14, 2023 Campos Erwin DO Other Provider Active Start: May 14, 2023 Michelle Kerr RN Other Provider Active Start: F ebruary 2023 Day Care Home Provider Relationship Specialty Start Date End Date Se Tran MD [address] [place] [address] PCP - General Family Medicine 02/03/23 Day Care Home Provider Relationship Specialty Start Date End Date Se Tran MD [address] [place] [address] PCP - General Family Medicine 02/03/23 Day Care Home Provider Relationship Specialty Start Date End Date Se Tran MD [address] [place] [address] PCP - General Family Medicine 02/03/23 Day Care Home Provider Relationship Specialty Start Date End Date Se Tran MD [address] [place] [address] PCP - General Family Medicine 02/03/23 Day Care Home Provider Relationship Specialty Start Date End Date Se Tran MD [address] [place] [address] PCP - General Family Medicine 02/03/23 Day Care Home Provider Relationship Specialty Start Date End Date Se Tran MD [address] [place] [address] PCP - General Family Medicine 02/03/23 Day Care Home Provider Relationship Specialty Start Date End Date Se Tran MD [address] [place] [address] PCP - General Family Medicine 02/03/23 Day Care Home Provider Relationship Specialty Start Date End Date Se Tran MD [address] [place] [address] PCP - General Family Medicine 02/03/23 Goals (unrecognized section and content) Goals may be documented in a n alternate section FOR RECORDS PERTAINING TO PATIENTS WHO ARE OR HAVE BEEN ENROLLED IN A CHEMICAL DEPENDENCY/SUBSTANCEABUSE PROGRAM, SOME INFORMATION MAY BE OMITTED. This clinical summary was aggregated from multiple sources. Caution should be exercised in using it in the provision of clinical care. This summary normalizes information from multiple sources, and as a consequence, information in this document may materially change the coding, format and clinical context of patient data. In addition, data may be omitted in some cases. CLINICAL DECISIONS SHOULD BE BASED ON THE PRIMARY CLINICAL RECORDS. [facility] [employer] [facility]. provides no warranty or guarantee of the accuracy or completeness of information in this document.
== END 2023-11-23 09:41 | disposition home or self-care (01) ==
LOC: RAD 09:41
PROVIDERS: PCP Family Medicine; Visit Provider Family Medicine
DX: M81.0 Age-related osteoporosis without current pathological fracture (principal)
CPT/HCPCS: 77080